=== PATIENT | female | born 1935 | race Caucasian/White ===

== ENCOUNTER 2016-12-02 16:34 | Inpatient (IN) | payer MEDICARE, BC ==
[2016-12-02] MEDS ORDERED: MORPHINE SULFATE 4 MG/ML SYRG IV ONE ×2 (16:51→18:12)
[2016-12-02] MEDS ORDERED: MORPHINE SULFATE 2 MG/ML DISP.SYRIN ONE (16:54)
--- OUTSIDE RECORDS SUMMARY | 2016-12-02 17:25 | XMS REPORT | CCD ---
:1935 Author Name VENANCIO PRASAD Address [address] [facility] Unavailable [place], [place] [id number] Care Team Providers Name Role Phone LUIS CELAYA Attending Physician Unavailable Vital Signs Unknown or Not Available. Allergies Unknown or Not Available. Procedures Unknown or Not Available. History of Immunizations Unknown or Not Available. Problems Unknown or Not Available. Results RENAL FUNCTION PANEL - Collect Date/Time: 04/15/2016 11:24 Test Name Code Test Result Test Units Test Ref Range GLUCOSE 102 mg/dL L=74 H=106 SODIUM 143 mmol/L L=136 H=145 POTASSIUM 3.9 mmol/L L=3.5 H=5.1 CHLORIDE 106 mmol/L L=98 H=107 CO2 26 mmol/L L=21 H=32 BUN 44.0 mg/dL L=7.0 H=18.0 CREATININE 1.8 mg/dL L=0.6 H=1.0 BUN/CREAT 24.4 L=7.6 H=21.2 CALCIUM 9.5 mg/dL L=8.6 H=10.1 PHOSPHORUS 4.3 mg/dL L=2.5 H=4.9 ALBUMIN 4.0 g/dL L=3.4 H=5.0 ANION GAP 14.5 mmol/L L=7.0 H=16.0 AGE 80 YEARS GFR 28.63 ml/min CBC W/DIFF - Collect Date/Time: 04/15/2016 11:24 Test Name Code Test Result Test Units Test Ref Range WBC 6690-2 7.4 K/uL L=3.2 H=10.0 RBC 789-8 3.88 M/uL L=4.00 H=5.20 HEMOGLOBIN 718-7 11.5 g/dL L=12.1 H=15.6 HEMATOCRIT 34.7 % L=35.0 H=47.0 MCV 89.4 fL L=81.0 H=101 MCH 29.6 PG L=26.0 H=38.0 MCHC 33.1 G/DL L=31.0 H=37.0 RDW-SD 43.1 FL L=37.0 H=54.0 RDW-CV 13.8 % L=11.0 H=16.0 PLATELETS 777-3 232 K/UL L=140 H=380 MPV 10.1 FL L=9.0 H=13.0 %GRAN 72.1 % L=0.0 H=75.0 %LYMPH 19.8 % L=0.0 H=50.0 %MONO 6.8 % L=0.0 H=14.0 %EOS 0.4 % L=0.0 H=6.0 %BASO 0.9 % L=0.0 H=1.0 #GRAN 5.33 K/UL L=1.80 H=7.80 #LYMPH 1.46 K/UL L=0.30 H=4.00 #MONO 0.50 K/UL L=0.00 H=0.70 #EOS 0.03 K/UL L=0.00 H=0.40 #BASO 0.07 K/UL L=0.00 H=0.10 SLIDE REVIEWED? NOT INDICATED N/A MANUAL DIFF NOT INDICATED N/A Active Medications Unknown or Not Available. Medications Administered During Visit Unknown or Not Available. Encounters Encounter Diagnosis Diagnosis Code Start Date Anemia in chronic kidney disease D631 04/15/2016 Social History Smoking Status Code Start Date End Date Never smoker [id number] Patient Decision Aids Unknown or Not Available. Discharge Instructions You were admitted to [facility] on 04/15/2016 11:12 with a principal diagnosis of Anemia in chronic kidney disease You had the following tests done:CBC W/DIFFRENAL FUNCTION PANEL You were discharged from [facility] on 04/15/2016 11:12 Should you have any questions prior to discharge, please contact a member of your healthcare team. If you have left the hospital and have any questions, please contact your primary care physician. Chief Complaint and Reason For Visit Unknown or Not Available. Function Status Unknown or Not Available. Plan of Care Diagnostic Test Pending Plan of Care Pending Diagnostic Test IRON & IRON BINDING CAPACITY, SERUM, [LOINC: 56621-9], 04/15/2016 Referral/Transition of Care Unknown or Not Available.
--- OUTSIDE RECORDS SUMMARY | 2016-12-02 17:25 | XMS REPORT | Continuity of Care Document ---
:1935 Author Organization [facility] Address Unavailable [place] [address] Care Team Providers Name Role Phone Doyle Rivera Primary Care Provider [phone] Source Comments This disclosure is being made pursuant to the [employer] program and maynot contain all information available regarding this patient.[facility] Active Allergies and Adverse Reactions Allergen Noted Date Severity Reactions Comments Bactrim Ds 07/21/2016 Low Nausea Only Current Medications Be aware that medications may not be up to date as of this document. Alwaysverify current medications with the patient. Prescription Sig. Disp. Refills Start Date End Date Status pravastatin (PRAVACHOL) 20 Take 20 mg by Active MG tablet mouth daily. lisinopril Take 10 mg by Active (PRINIVIL,ZESTRIL) 10 MG mouth daily. tablet aspirin 325 MG tablet Take 325 mg Active by mouth daily. hydrochlorothiazide take 1 tablet 1 12/04/2015 Active (HYDRODIURIL) 25 MG tablet by mouth daily letrozole (FEMARA) 2.5 MG Take 1 tablet 30 tablet 12 03/24/2016 Active tablet by mouth daily. NIFEDICAL XL 30 MG 24 hr TAKE 1 TABLET 90 tablet 0 08/31/2016 Active tablet BY MOUTH EVERY DAY donepezil (ARICEPT) 10 MG Take 1 tablet 30 tablet 2 09/06/2016 Active tablet by mouth nightly. traMADol (ULTRAM) 50 MG Take 1 tablet 50 tablet 0 11/18/2016 Active tablet (50 mg total) by mouth every 6 (six) hours as needed for Pain. 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) Most Recent Encounters Date Type Specialty Providers Description 11/18/2016 Office Visit Family Medicine Doyle Rivera MD Essential hypertension, benign (Primary Dx); Mixed hyperlipidemia; Chronic pain of both knees; Late onset Alzheimer's disease without behavioral disturbance 11/12/2016 Orders Only Provider, Not In System 09/06/2016 Refill Family Medicine Kandy Phillips CMA 09/01/2016 Orders Only Provider, Not In System Social History Tobacco Use Types Packs/Day Years Used Date Former Smoker Cigarettes 1 25 Alcohol Use Drinks/Week oz/Week Comments No 0 Standard drinks or equivalent 0.0 Last Filed Vital Signs Vital Sign Reading Time Taken Blood Pressure 108/66 11/18/2016 4:01 PM CDT Pulse 70 11/18/2016 4:01 PM CDT Temperature 36.9 C (98.4 F) 08/19/2016 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 Respiratory Rate 20 11/18/2016 4:01 PM CDT Height 1.651 m (5' 5") 11/18/2016 4:01 PM CDT Weight 56.7 kg (125 lb) 11/18/2016 4:01 PM CDT Body Mass Index 20.8 11/18/2016 4:01 PM CDT Oxygen Saturation 98% 11/18/2016 4:01 PM CDT Plan of Care Patient Goal Type Goal Blood Pressure Blood Pressure below 140/90 Date Type Specialty Providers Description 12/06/2016 Appointment [place] [address] [place] [phone] (Fax) 12/17/2016 Appointment Radiology 02/21/2017 Appointment Family Doyle Aguirre MD [address] [place] [phone] (Fax) 02/23/2017 Appointment Oncology 02/23/2017 Appointment Oncology Troy Boateng MD [address] [place] [phone] (Fax) Health Maintenance Due Date Last Done Comments Tetanus/Pertussis (1 - Tdap) 1952 Well Adult Visit 09/05/1983 Zoster Vaccine 60+ 1993 Bone Density 1998 Pneumococcal Low/Medium Risk 65+ (1 of 2 - PCV13) 1998 Influenza Immunization (#1) 2016 Results from Last 3 Months Lipid panel (11/18/2016 4:15 PM) Component Value Range Cholesterol 170Comment:Cholesterol preferred <200 mg/dL. 0-200 mg/dL Clinical correlation is essential. Triglycerides 147 0-200 mg/dL HDL Cholesterol 55(L) >60 mg/dL LDL Calculated 85.6Comment: mg/dL <100Optimal 100-129 Near Optimal/Above Optimal 130-159 Borderline High 160-189 High >hm=405Mihd High Cholesterol/HDL Ratio 3.1 Narrative Testing performed at [facility], [address] [place] [address].Lead Portfolio Manager Isauro Duarte MD CBC auto differential (11/18/2016 4:15 PM) Component Value Range WBC 7.0 3.1-11.0 x10^3/uL RBC 3.52(L) 4.00-5.10 x10^6/uL Hemoglobin 10.9(L) 12.5-15.3 g/dL Hematocrit 32.6(L) 33.7-46.0 % MCV 92.6 82.0-98.0 fL MCH 31.0 27.2-33.3 pg MCHC 33.4 32.0-36.0 g/dL RDW 13.3 11.5-14.7 % SD-RDW 43.7 36.5-50.0 fL Platelets 261 150-450 x10^3/uL MPV 9.7 9.1-12.1 fL NE% 64.0 42.0-76.0 % %LYMPH 24.9 13.5-48.0 % %MONO 8.7 3.5-14.0 % % Eosinophils 0.7 0.0-7.0 % % Basophils 1.4 0.0-1.5 % Imm Gran Relative 0.3 0.0-1.0 % NE# 4.5 1.2-7.3 x10^3/uL Lymphs # 1.8 0.7-3.5 x10^3/uL [place]# 0.6 0.2-0.9 x10^3/uL Eosinophil # 0.1 0.0-0.5 x10^3/uL Baso# 0.1 0.0-0.1 x10^3/uL Imm Gran Absolute 0.02 0.00-0.10 x10^3/uL NRBC % 0.00 0.00-0.10 /100 WBC Specimen BLOOD Narrative Testing performed at [facility], [address] [place] [address].Lead Portfolio Manager Isauro Duarte MD Comprehensive metabolic panel (11/18/2016 4:15 PM) Component Value Range Glucose 97Comment: 60-100 mg/dL Fasting Plasma Glucose (FPG)<100 MG/DL Impaired Fasting Glucose (IFG) 100-125 MG/DL Provisional Diagnosis of Diabetes Mellitus > tv=129 MG/DL (Diagnosis Must Be Confirmed) BUN, Blood 21(H) 10-20 mg/dL Creatinine 1.6(H) 0.6-1.2 mg/dL Glomerular Filtration Rate 29(L) >80 mL/min/1.73mm2 Estimate Glomerlular Filtration Rate 34(L)Comment:The estimated GFR >80 mL/min/1.73mm2 Estimate- has not been validated for women or patients with serious comorbid conditions, or with extremes of body size, muscle mass, or nutritional status. Calcium 9.3 8.4-10.2 mg/dL Sodium 144 136-145 mmol/L Potassium 3.9 3.5-4.6 mmol/L Chloride 109 99-111 mmol/L CO2 26.1 21.0-32.0 mmol/L Albumin 3.3(L) 3.5-5.0 g/dL Total Protein 7.2 6.1-8.0 g/dL Bilirubin Total 0.2 0.2-1.2 mg/dL Alkaline Phosphatase 76 40-150 U/L AST 19 5-34 U/L ALT 7 0-55 u/L Narrative Testing performed at [facility], [address] [place] [address].Lead Portfolio Manager Isauro Duarte MD XR ANKLE MIN 3 VIEWS (11/04/2016)
--- OUTSIDE RECORDS SUMMARY | 2016-12-02 17:25 | XMS REPORT | Continuity of Care Document ---
:1935 Demographics Phone Unavailable Preferred Language Unknown Marital Status Unknown Baptist Affiliation Unknown Race Unknown Ethnic Group Unknown Author Organization [facility] ([facility]) Address [place] [address] Phone [phone] Care Team Providers Name Role Phone Unavailable Primary Care Provider Unavailable Source Comments This disclosure is being made pursuant to the Care Everywhere program, applicable federal and state laws, and may not contain all informaitonavailable regarding this patient.[facility] ([facility]) Active Allergies and Adverse Reactions Not on File Current Medications Not on file Active Problems Not on file Social History Tobacco Use Types Packs/Day Years Used Date Never Assessed Plan of Care Health Maintenance Due Date Last Done Comments Hepatitis B Vaccine (1 of 3 - Primary Series) 1935 Tdap Vaccine 1944 Lipid Disorder Screening 09/05/1951 Td Vaccine 09/05/1951 Colonoscopy 1983 Zoster Vaccine 1993 Osteoporosis Screening (DXA Bone Density) 1998 Pneumococcal Vaccine (1 of 2 - PCV13) 1998 Influenza Vaccine: Seasonal (#1) 01/26/2016 Results from Last 3 Months Not on file
[2016-12-02] MEDS ORDERED: ONDANSETRON HCL/PF 2 MG/ML VIAL IV ONE (18:12)
[2016-12-02] MEDS ORDERED: ONDANSETRON HCL/PF 2 MG/ML VIAL ONE (18:13)
[2016-12-02] MEDS ORDERED: MORPHINE SULFATE 4 MG/ML SYRG ONE (18:13)
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
--- OUTSIDE RECORDS SUMMARY | 2016-12-02 19:17 | XMS REPORT | Continuity of Care Document ---
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 Respiratory Rate 20 11/18/2016 4:01 PM CDT [...] 12/06/2016 Appointment [place] [address] [place] [phone] (Fax) 12/17/2016 Appointment Radiology 02/21/2017 Appointment Family Doyle Aguirre MD [address] [place] [phone] (Fax) 02/23/2017 Appointment Oncology 02/23/2017 Appointment Oncology Troy Boateng MD [address] [place] [phone] (Fax) Health Maintenance Due Date Last Done [...] Optimal/Above Optimal 130-159 Borderline High 160-189 High >[id number] High Cholesterol/HDL Ratio 3.1 Narrative Testing performed at [facility], [address] [place] [address].Animal Tech Isauro Duarte MD CBC auto differential (11/18/2016 [...] 1.2-7.3 x10^3/uL Lymphs # 1.8 0.7-3.5 x10^3/uL [place]# 0.6 0.2-0.9 x10^3/uL Eosinophil # 0.1 0.0-0.5 x10^3/uL Baso# 0.1 0.0-0.1 x10^3/uL Imm Gran Absolute 0.02 0.00-0.10 x10^3/uL NRBC % 0.00 0.00-0.10 /100 WBC Specimen BLOOD Narrative Testing performed at [facility], [address] [place] [address].Animal Tech Isauro Duarte MD Comprehensive metabolic panel (11/18/2016 4:15 PM) Component Value Range Glucose 97Comment: 60-100 mg/dL Fasting Plasma Glucose (FPG)<100 MG/DL Impaired Fasting Glucose (IFG) 100-125 MG/DL Provisional Diagnosis of Diabetes Mellitus > mp=063 MG/DL (Diagnosis Must Be Confirmed) BUN, Blood [...] 7 0-55 u/L Narrative Testing performed at [facility], [address] [place] [address].Animal Tech Isauro Duarte MD XR ANKLE MIN 3 VIEWS (11/04/2016)
--- OUTSIDE RECORDS SUMMARY | 2016-12-02 19:17 | XMS REPORT | Continuity of Care Document ---
:1935 Demographics Phone Unavailable Preferred Language Unknown Marital Status Unknown Yarsani Affiliation Unknown Race Unknown Ethnic Group Unknown Author Organization [facility] ([facility]) [place] [address] Phone [phone] Care Team Providers Name Role Phone Unavailable Primary Care Provider Unavailable Source Comments This disclosure is being made pursuant to the Care Everywhere program, applicable federal and state laws, and may not contain all informaitonavailable regarding this patient.[facility] ([facility]) Active Allergies and Adverse Reactions Not on [...]
[2016-12-02] MEDS ORDERED: HYDROmorphone HCL 1 MG/ML DISP.SYRIN IV ONE (19:58)
[2016-12-02] MEDS ORDERED: HYDROmorphone HCL 1 MG/ML DISP.SYRIN ONE (20:01)
[2016-12-02] MEDS ORDERED: ONDANSETRON HCL/PF 2 MG/ML VIAL IV PRN (21:10)
[2016-12-02] MEDS ORDERED: traMADol HCL 50 MG TABLET PO PRN ×2 (21:23→21:31)
[2016-12-02] MEDS: DEXTROSE 5%-LACTATED RINGERS 1,000 ML IV PRN (21:51)
[2016-12-02 21:55] LABS: Hemoglobin 10.1 gm/dL (12.5-16.0); Mean Cell Volume 87.5 fl (78-100); Mean Corpuscular Hemoglobin 29.4 pg (27-31); Mean Corpuscular Hgb Conc 33.7 g/dl (32-36); Mean Platelet Volume 9.9 fl (6.0-9.5); Neutrophil # 9.3 K/mm3 (1.3-6.0); Platelet Count 202 K/mm3 (150-450); Red Blood Count 3.43 M/mm3 (4.2-5.4); White Blood Count 10.4 K/mm3 (4.0-10.5)
[2016-12-02] MEDS: HYDROmorphone HCL 1 MG/ML DISP.SYRIN IV PRN (21:56)
[2016-12-02 22:01] LABS: BUN/Creatinine Ratio 19.4 (9.0-21.6)
[2016-12-02 22:02] LABS: Albumin * 3.2 gm/dl (3.4-5.0); Anion Gap 14.4 mmol/L (6.8-13.8); Bilirubin, Total 0.6 mg/dL (0.0-1.1); Ca. Corrected For Albumin 9.8 mg/dL (8.4-10.2); Calcium * 9.5 mg/dL (7.9-10.9); Carbon Dioxide 27.2 mmol/L (24-32.6); Potassium 3.6 mmol/L (3.4-4.6); TSH * 2.107 uIU/mL (0.358-3.74); Total Protein 6.9 gm/dL (6.2-8.2)
[2016-12-02 22:21] LABS: Urine Bilirubin 1 mg/dl (NEGATIVE); Urine Blood 50 /ul (NEGATIVE); Urine Ketone 5 mg/dL (NEGATIVE); Urine Nitrite Negative (NEGATIVE); Urine Protein Negative (NEGATIVE); Urine Specific Gravity 1.025 SP.GR. (1.005-1.010); Urine Urobilinogen Normal (NORMAL)
[2016-12-02 23:04] LABS: Urine Appearance Slightly Cloudy; Urine Bacteria 3+; Urine Color Yellow; Urine RBC 0-5 /hpf (0-5); Urine Renal Epithelial Cell Few - 1+ /hpf
[2016-12-02 23:05] LABS: Urine Amorphous Sediment Few - 1+ (NONE-FEW); Urine Mucus Few - 1+; Urine Yeast Few - 1+
--- NOTE | 2016-12-02 23:21 | HP ---
Addendum entered and electronically signed by Joann Hallman ARNP 12/03/16 03: 03: pt is cleared for surgery this am. MATT Corcoran. Original Note: <Joann Hallman - Last Filed: 12/03/16 02:27> Chief Complaint - Chief Complaint Date of Service: 12/02/16 Time of Service: 20:50 Chief Complaint: right hip fracture History of Present Illness: Lilian is an 81 year old female with a PMH of dementia, HTN, HLD who was found at her independent living quarters after a fall. Unable to obtain a full history as patient has dementia and family is not present. Information obtained from ER records. ER eval revealed right displaced femur fracture - Dr. Escalante has been consulted and will likely take the patient to surgery in the am to repair. Patient c/o right hip / leg pain. denies cp, dyspnea and n/ v. EKG shows SR with possible old inferior LA but no acute changes. Patient to be admitted for right femur fracture and likely surgical repair in the am. expect patient stay of at least 3 midnights. - Patient's Past Medical History Patient History - Medical: Chronic Pain, Dementia Patient History - Cardiac/Respiratory: Hypertension, Hyperlipidemia Patient History - Cancer: Breast, Surgical Treatment Patient History - Surgical Procedures: Cataracts, Hysterectomy, Other Patient History - Other: None LMP (females 10-50): Menopausal - Family History Mother Family History - Medical: , No pertinent hx Family History - Cardiac/Respiratory: Myocardial Infarction Family History - Cancer: History Unknown, Other Father Family History - Medical: , No pertinent hx Family History - Cardiac/Respiratory: Atrial Fibrillation Family History - Cancer: History Unknown, Other Brother Family History - Medical: , No pertinent hx Family History - Cardiac/Respiratory: No pertinent hx Family History - Cancer: History Unknown, Other Sister Family History - Medical: , No pertinent hx Family History - Cardiac/Respiratory: No pertinent hx Family History - Cancer: History Unknown, Other - Social History Living Situations: alone Abuse History: No History of abuse Psych History: No pertinent hx Smoking Status: Former smoker Have you smoked in the past 12 months: No Alcohol Use: none Drug Use: none - Immunizations Immunizations Up to Date: Yes Hx Pneumococcal Vaccination: No History of Influenza Vaccine: No Review Of Systems (GEN) - Review of Systems Generalized/Overall Review: Present: No Symptoms Reported EENTM: Present: No Symptoms Reported Respiratory: Present: No Symptoms Reported Cardiac: Present: No Symptoms Reported Abdominal: Present: No Symptoms Reported Genitourinary: Present: No Symptoms Reported Musculoskeletal: Present: Joint Pain Neurological: Present: Other - dementia Skin: Present: No Symptoms Reported Endocrine: Present: No Symptoms Reported Misc: All systems neg except as marked Immunizations: IMMUNIZATION HX Immunizations Up to Date Yes History of Influenza Vaccine No Hx Pneumococcal Vaccination No Allergies/Adverse Reactions: Allergies Allergy/AdvReac Type Severity Reaction Status Date / Time No Known Allergies Allergy Verified 12/02/16 20:46 Home Medications: HOME MEDICATIONS Aspirin [Aspirin Enteric Coated] 325 mg PO DAILY 12/02/16 [Last Taken Unknown] Donepezil HCl [Aricept] 10 mg PO DAILY 12/02/16 [Last Taken Unknown] Hydrochlorothiazide [Hydrodiuril] 25 mg PO DAILY 12/02/16 [Last Taken Unknown] Lisinopril [Prinivil] 10 mg PO DAILY 12/02/16 [Last Taken Unknown] NIFEdipine [Procardia Xl] 30 mg PO DAILY 12/02/16 [Last Taken Unknown] Pravastatin Sodium [Pravachol] 20 mg PO DAILY 12/02/16 [Last Taken Unknown] traMADol HCL [Ultram] 50 mg PO PRN PRN 12/02/16 [Last Taken Unknown] Exam - Exam Vital Signs: Vital Signs - Last Taken Temp 36.0 C L 12/02/16 21:00 Pulse 86 12/02/16 21:00 Resp 16 12/02/16 21:00 BP 109/58 12/02/16 21:00 Pulse Ox 95 12/02/16 21:00 Constitutional: Present: Alert, Cooperative, No distress ENT Exam: Present: hearing grossly normal Eye Exam: bilateral eye: normal inspection Neck: Present: supple Back Exam: Present: no vertebral tenderness Breasts: Present: Exam deferred Respiratory: Present: lungs clear, normal breath sounds, no respiratory distress Cardiovascular/Chest: Present: normal peripheral pulses, regular rate, rhythm, no chest tenderness Peripheral Pulses: dorsalis-pedis (R): 2+, dorsalis-pedis (L): 2+, radial (R): 2 +, radial (L): 2+ Abdomen: Present: soft, nontender, nondistended /Rectal: Present: Exam deferred Extremity: Present: no pedal edema, leg pain - right. Absent: slow capillary refill Skin Exam: Present: normal color, warm/dry, no cyanosis Neurologic: Present: other - dementia Diagnostic Studies: Abnormal Lab Results 12/02/16 12/02/16 12/02/16 Range/Units 21:26 21:26 21:40 RBC 3.43 L (4.2-5.4) M/mm3 Hgb 10.1 L (12.5-16.0) gm/dL Hct 30.0 L (37.0-47.0) % MPV 9.9 H (6.0-9.5) fl Immature Gran % (Auto) 0.50 H (0.001-0.429) % Immature Gran # (Auto) 0.05 H (0.000-0.0310) K/mm3 Neutrophils % 89.0 H (42-75.0) % Lymphocytes % 5.4 L (20-51) % Neutrophils # 9.3 H (1.3-6.0) K/mm3 Lymphocytes # 0.6 L (1.5-3.5) k/mm3 Sodium 144 H (132-142) mmol/L Plasma Sodium 145 H (130-142) mmol/L Anion Gap 14.4 H (6.8-13.8) mmol/L BUN 37 H (3-23) mg/dL Creatinine 1.91 H (0.4-1.4) mg/dL Est GFR (Non-Af Amer) 27 L (60-130) mL/min Random Glucose 136 H (70-110) mg/dL ALT 13 L (19-67) U/L Albumin 3.2 L (3.4-5.0) gm/dl Urine Blood 50 H (NEGATIVE) /ul Urine Bilirubin 1 H (NEGATIVE) mg/dl Ur Leukocyte Esterase 500 H (NEGATIVE) /ul Urine WBC 5-10 H (0-5) /hpf Ur Epithelial Cells 10-25 H (0-5) /hpf Ur Renal Epithelial Cell Few - 1+ H (NONE) /hpf Urine Bacteria 3+ H (NONE) Hyaline Casts 5-10 H (NONE) /LPF Urine Mucus Few - 1+ H (NONE) Urine Yeast Few - 1+ H (NONE) Laboratory Results WBC 10.4 K/mm3 (4.0-10.5) 12/02/16 21:26 RBC 3.43 M/mm3 (4.2-5.4) L 12/02/16 21:26 Hgb 10.1 gm/dL (12.5-16.0) L 12/02/16 21:26 Hct 30.0 % (37.0-47.0) L 12/02/16 21:26 MCV 87.5 fl (78-100) 12/02/16 21:26 MCH 29.4 pg (27-31) 12/02/16 21: MCHC 33.7 g/dl (32-36) 12/02/16 21: RDW 13.0 % (11.5-14.0) 12/02/16 21: Plt Count 202 K/mm3 (150-450) 12/02/16 21:26 MPV 9.9 fl (6.0-9.5) H 12/02/16 21:26 Immature Gran % (Auto) 0.50 % (0.001-0.429) H 12/02/16 21:26 Immature Gran # (Auto) 0.05 K/mm3 (0.000-0.0310) H 12/02/16 21:26 Neutrophils % 89.0 % (42-75.0) H 12/02/16 21:26 Lymphocytes % 5.4 % (20-51) L 12/02/16 21:26 Monocytes % 4.8 % (0.0-9) 12/02/16 21:26 Eosinophils % 0.0 % (0.0-3.0) 12/02/16 21: Basophils % 0.3 % (0.0-1.0) 12/02/16 21:26 Nucleated RBC % 0.0 k/mm3 (0-1) 12/02/16 21:26 Neutrophils # 9.3 K/mm3 (1.3-6.0) H 12/02/16 21:26 Lymphocytes # 0.6 k/mm3 (1.5-3.5) L 12/02/16 21:26 Monocytes # 0.5 k/mm3 (0.0-1.0) 12/02/16 21: Eosinophils # 0.0 k/mm3 (0.0-0.7) 12/02/16 21:26 Absolute Basophils 0.0 k/mm3 (0.0-0.1) 12/02/16 21:26 Sodium 144 mmol/L (132-142) H 12/02/16 21:26 Plasma Sodium 145 mmol/L (130-142) H 12/02/16 21:26 Potassium 3.6 mmol/L (3.4-4.6) 12/02/16 21:26 Chloride 106 mmol/L (97-106) 12/02/16 21:26 Carbon Dioxide 27.2 mmol/L (24-32.6) 12/02/16 21:26 Anion Gap 14.4 mmol/L (6.8-13.8) H 12/02/16 21:26 BUN 37 mg/dL (3-23) H 12/02/16 21:26 Creatinine 1.91 mg/dL (0.4-1.4) H 12/02/16 21:26 Est GFR (Non-Af Amer) 27 mL/min (60-130) L 12/02/16 21:26 BUN/Creatinine Ratio 19.4 (9.0-21.6) 12/02/16 21:26 Random Glucose 136 mg/dL (70-110) H 12/02/16 21:26 Calcium 9.5 mg/dL (7.9-10.9) 12/02/16 21:26 Calcium Adj for Albumin 9.8 mg/dL (8.4-10.2) 12/02/16 21:26 Total Bilirubin 0.6 mg/dL (0.0-1.1) 12/02/16 21:26 AST 26 U/L (0-48) 12/02/16 21:26 ALT 13 U/L (19-67) L 12/02/16 21:26 Alkaline Phosphatase 66 U/L (50-170) 12/02/16 21:26 Total Protein 6.9 gm/dL (6.2-8.2) 12/02/16 21:26 Albumin 3.2 gm/dl (3.4-5.0) L 12/02/16 21:26 TSH 2.107 uIU/mL (0.358-3.74) 12/02/16 21:26 Urine Color Yellow 12/02/16 21:40 Urine Appearance Slightly cloudy 12/02/16 21:40 Urine pH 6.0 pH (5.0-7.0) 12/02/16 21:40 Ur Specific [place] 1.025 SP.GR. (1.005-1.010) 12/02/16 21:40 Urine Protein Negative mg/dL (NEGATIVE) 12/02/16 21:40 Urine Glucose (UA) Negative mg/dL (NEGATIVE) 12/02/16 21:40 Urine Ketones 5 mg/dL (NEGATIVE) 12/02/16 21:40 Urine Blood 50 /ul (NEGATIVE) H 12/02/16 21:40 Urine Nitrate Negative (NEGATIVE) 12/02/16 21:40 Urine Bilirubin 1 mg/dl (NEGATIVE) H 12/02/16 21:40 Urine Ictotest Negative (NEGATIVE) 12/02/16 21:40 Urine Urobilinogen Normal EU/dl (NORMAL) 12/02/16 21:40 Ur Leukocyte Esterase 500 /ul (NEGATIVE) H 12/02/16 21:40 Urine RBC 0-5 /hpf (0-5) 12/02/16 21:40 Urine WBC 5-10 /hpf (0-5) H 12/02/16 21:40 Ur Epithelial Cells 10-25 /hpf (0-5) H 12/02/16 21:40 Ur Renal Epithelial Cell Few - 1+ /hpf (NONE) H 12/02/16 21:40 Calcium Oxalate Crystal Trace /hpf (NONE) 12/02/16 21:40 Amorphous Sediment Few - 1+ (NONE-FEW) 12/02/16 21:40 Urine Bacteria 3+ (NONE) H 12/02/16 21:40 Hyaline Casts 5-10 /LPF (NONE) H 12/02/16 21:40 Urine Mucus Few - 1+ (NONE) H 12/02/16 21:40 Urine Yeast Few - 1+ (NONE) H 12/02/16 21:40 Urine Culture Comments Culture to follow 12/02/16 21:40 Assessment/Plan - Narrative Narrative: Displaced right femur fracture - consult Dr. Escalante, appreciate his help. - NPO p mn, likely surgery in am. - D5 with LR at 125 ml/hr due to NPO. - pain medications prn - encourage good pain management pre and post op. - incentive spirometer q1 hour while awake - hebert due to femur fracture and immobility Fall - check cbc, cmp, ua, tsh due to fall - further orders based on results Dementia - high fall risk - will need bed alarm while in hospital - watch closely post op HTN - vital signs q 4 hours Code status: Full Code VTE: none preop due to surgery in am; post op per orthopaedics GI proph: protonix po - Assessment/Plan (1) Fracture, intertrochanteric, right femur Problem: Acute QualifierTitle: Encounter type: initial encounter Fracture type: closed Fracture alignment: displaced Qualified Code(s): S72.141A - Displaced intertrochanteric fracture of right femur, initial encounter for closed fracture (2) Fall Problem: Acute QualifierTitle: Encounter type: initial encounter Qualified Code(s): W19.XXXA - Unspecified fall, initial encounter (3) Dementia Problem: Chronic QualifierTitle: Dementia type: unspecified type Dementia behavioral disturbance: without behavioral disturbance Qualified Code(s): F03.90 - Unspecified dementia without behavioral disturbance (4) HTN (hypertension) Problem: Chronic QualifierTitle: Hypertension type: essential hypertension Qualified Code( s): I10 - Essential (primary) hypertension (5) HLD (hyperlipidemia) Problem: Acute QualifierTitle: Hyperlipidemia type: unspecified Qualified Code(s): E78.5 - Hyperlipidemia, unspecified <Devang Diaz - Last Filed: 12/03/16 10:12> Immunizations: IMMUNIZATION HX Immunizations Up to Date Yes History of Influenza Vaccine No Hx Pneumococcal Vaccination No Exam - Exam Vital Signs: Vital Signs - Last Taken Temp 36.3 C L 12/03/16 06:37 Pulse 73 12/03/16 06:37 Resp 12 12/03/16 06:37 BP 97/57 12/03/16 06:37 Pulse Ox 93 12/03/16 06:37 Diagnostic Studies: Abnormal Lab Results 12/02/16 12/02/16 12/02/16 Range/Units 21:26 21:26 21:40 RBC 3.43 L (4.2-5.4) M/mm3 Hgb 10.1 L (12.5-16.0) gm/dL Hct 30.0 L (37.0-47.0) % MPV 9.9 H (6.0-9.5) fl Immature Gran % (Auto) 0.50 H (0.001-0.429) % Immature Gran # (Auto) 0.05 H (0.000-0.0310) K/mm3 Neutrophils % 89.0 H (42-75.0) % Lymphocytes % 5.4 L (20-51) % Neutrophils # 9.3 H (1.3-6.0) K/mm3 Lymphocytes # 0.6 L (1.5-3.5) k/mm3 Sodium 144 H (132-142) mmol/L Plasma Sodium 145 H (130-142) mmol/L Anion Gap 14.4 H (6.8-13.8) mmol/L BUN 37 H (3-23) mg/dL Creatinine 1.91 H (0.4-1.4) mg/dL Est GFR (Non-Af Amer) 27 L (60-130) mL/min Random Glucose 136 H (70-110) mg/dL ALT 13 L (19-67) U/L Albumin 3.2 L (3.4-5.0) gm/dl Urine Blood 50 H (NEGATIVE) /ul Urine Bilirubin 1 H (NEGATIVE) mg/dl Ur Leukocyte Esterase 500 H (NEGATIVE) /ul Urine WBC 5-10 H (0-5) /hpf Ur Epithelial Cells 10-25 H (0-5) /hpf Ur Renal Epithelial Cell Few - 1+ H (NONE) /hpf Urine Bacteria 3+ H (NONE) Hyaline Casts 5-10 H (NONE) /LPF Urine Mucus Few - 1+ H (NONE) Urine Yeast Few - 1+ H (NONE) Laboratory Results WBC 10.4 K/mm3 (4.0-10.5) 12/02/16 21:26 RBC 3.43 M/mm3 (4.2-5.4) L 12/02/16 21:26 Hgb 10.1 gm/dL (12.5-16.0) L 12/02/16 21:26 Hct 30.0 % (37.0-47.0) L 12/02/16 21:26 MCV 87.5 fl (78-100) 12/02/16 21:26 MCH 29.4 pg (27-31) 12/02/16 21: MCHC 33.7 g/dl (32-36) 12/02/16 21:26 RDW 13.0 % (11.5-14.0) 12/02/16 21:26 Plt Count 202 K/mm3 (150-450) 12/02/16 21:26 MPV 9.9 fl (6.0-9.5) H 12/02/16 21:26 Immature Gran % (Auto) 0.50 % (0.001-0.429) H 12/02/16 21:26 Immature Gran # (Auto) 0.05 K/mm3 (0.000-0.0310) H 12/02/16 21:26 Neutrophils % 89.0 % (42-75.0) H 12/02/16 21:26 Lymphocytes % 5.4 % (20-51) L 12/02/16 21:26 Monocytes % 4.8 % (0.0-9) 12/02/16 21:26 Eosinophils % 0.0 % (0.0-3.0) 12/02/16 21:26 Basophils % 0.3 % (0.0-1.0) 12/02/16 21:26 Nucleated RBC % 0.0 k/mm3 (0-1) 12/02/16 21:26 Neutrophils # 9.3 K/mm3 (1.3-6.0) H 12/02/16 21:26 Lymphocytes # 0.6 k/mm3 (1.5-3.5) L 12/02/16 21:26 Monocytes # 0.5 k/mm3 (0.0-1.0) 12/02/16 21:26 Eosinophils # 0.0 k/mm3 (0.0-0.7) 12/02/16 21:26 Absolute Basophils 0.0 k/mm3 (0.0-0.1) 12/02/16 21:26 Sodium 144 mmol/L (132-142) H 12/02/16 21:26 Plasma Sodium 145 mmol/L (130-142) H 12/02/16 21:26 Potassium 3.6 mmol/L (3.4-4.6) 12/02/16 21:26 Chloride 106 mmol/L (97-106) 12/02/16 21:26 Carbon Dioxide 27.2 mmol/L (24-32.6) 12/02/16 21:26 Anion Gap 14.4 mmol/L (6.8-13.8) H 12/02/16 21:26 BUN 37 mg/dL (3-23) H 12/02/16 21:26 Creatinine 1.91 mg/dL (0.4-1.4) H 12/02/16 21:26 Est GFR (Non-Af Amer) 27 mL/min (60-130) L 12/02/16 21:26 BUN/Creatinine Ratio 19.4 (9.0-21.6) 12/02/16 21:26 Random Glucose 136 mg/dL (70-110) H 12/02/16 21:26 Calcium 9.5 mg/dL (7.9-10.9) 12/02/16 21:26 Calcium Adj for Albumin 9.8 mg/dL (8.4-10.2) 12/02/16 21:26 Total Bilirubin 0.6 mg/dL (0.0-1.1) 12/02/16 21:26 AST 26 U/L (0-48) 12/02/16 21:26 ALT 13 U/L (19-67) L 12/02/16 21:26 Alkaline Phosphatase 66 U/L (50-170) 12/02/16 21:26 Total Protein 6.9 gm/dL (6.2-8.2) 12/02/16 21:26 Albumin 3.2 gm/dl (3.4-5.0) L 12/02/16 21:26 TSH 2.107 uIU/mL (0.358-3.74) 12/02/16 21:26 Urine Color Yellow 12/02/16 21:40 Urine Appearance Slightly cloudy 12/02/16 21:40 Urine pH 6.0 pH (5.0-7.0) 12/02/16 21:40 Ur Specific [place] 1.025 SP.GR. (1.005-1.010) 12/02/16 21:40 Urine Protein Negative mg/dL (NEGATIVE) 12/02/16 21:40 Urine Glucose (UA) Negative mg/dL (NEGATIVE) 12/02/16 21:40 Urine Ketones 5 mg/dL (NEGATIVE) 12/02/16 21:40 Urine Blood 50 /ul (NEGATIVE) H 12/02/16 21:40 Urine Nitrate Negative (NEGATIVE) 12/02/16 21:40 Urine Bilirubin 1 mg/dl (NEGATIVE) H 12/02/16 21:40 Urine Ictotest Negative (NEGATIVE) 12/02/16 21:40 Urine Urobilinogen Normal EU/dl (NORMAL) 12/02/16 21:40 Ur Leukocyte Esterase 500 /ul (NEGATIVE) H 12/02/16 21:40 Urine RBC 0-5 /hpf (0-5) 12/02/16 21:40 Urine WBC 5-10 /hpf (0-5) H 12/02/16 21:40 Ur Epithelial Cells 10-25 /hpf (0-5) H 12/02/16 21:40 Ur Renal Epithelial Cell Few - 1+ /hpf (NONE) H 12/02/16 21:40 Calcium Oxalate Crystal Trace /hpf (NONE) 12/02/16 21:40 Amorphous Sediment Few - 1+ (NONE-FEW) 12/02/16 21:40 Urine Bacteria 3+ (NONE) H 12/02/16 21:40 Hyaline Casts 5-10 /LPF (NONE) H 12/02/16 21:40 Urine Mucus Few - 1+ (NONE) H 12/02/16 21:40 Urine Yeast Few - 1+ (NONE) H 12/02/16 21:40 Urine Culture Comments Culture to follow 12/02/16 21:40 Assessment/Plan - Narrative Narrative: The patient is mildly hard of hearing and mildly hard of hearing. She states she fell over backwards and thought she broke every bone in her body. There are no contraindications to the planned hip repair. I directly supervised our nurse practitioner hospitalist care for this patient.
--- NOTE | 2016-12-03 02:53 | PN ---
<Joann Hallman - Last Filed: 12/03/16 02:53> Subjective - Date and Time Seen Date: 12/03/16 Time: 02:51 Subjective Narrative: pain improved. no cp/dyspnea. plan is for surgery today to fix right femur fracture. Objective - Review of Systems Generalized/Overall Review: Reports: No Symptoms Reported EENTM: Reports: No Symptoms Reported Respiratory: Reports: No Symptoms Reported Cardiac: Reports: No Symptoms Reported Abdominal: Reports: No Symptoms Reported Genitourinary Symptoms: Reports: No Symptoms Reported Musculoskeletal Complaints: Reports: Joint Pain Neurological: Reports: Pre-existing Deficit - dementia Skin: Reports: No Symptoms Reported Endocrine: Reports: No Symptoms Reported Misc: All systems neg except as marked - Vitals Vitals: Last Vital Signs Temp 36.4 C L 12/02/16 23:23 Pulse 91 12/02/16 23:23 Resp 22 H 12/02/16 23:23 BP 119/47 12/02/16 23:23 Pulse Ox 96 12/02/16 23:23 - Abnormal Lab Findings Abnormal Lab Findings: Abnormal Lab Results 12/02/16 12/02/16 12/02/16 Range/Units 21:26 21:26 21:40 RBC 3.43 L (4.2-5.4) M/mm3 Hgb 10.1 L (12.5-16.0) gm/dL Hct 30.0 L (37.0-47.0) % MPV 9.9 H (6.0-9.5) fl Immature Gran % (Auto) 0.50 H (0.001-0.429) % Immature Gran # (Auto) 0.05 H (0.000-0.0310) K/mm3 Neutrophils % 89.0 H (42-75.0) % Lymphocytes % 5.4 L (20-51) % Neutrophils # 9.3 H (1.3-6.0) K/mm3 Lymphocytes # 0.6 L (1.5-3.5) k/mm3 Sodium 144 H (132-142) mmol/L Plasma Sodium 145 H (130-142) mmol/L Anion Gap 14.4 H (6.8-13.8) mmol/L BUN 37 H (3-23) mg/dL Creatinine 1.91 H (0.4-1.4) mg/dL Est GFR (Non-Af Amer) 27 L (60-130) mL/min Random Glucose 136 H (70-110) mg/dL ALT 13 L (19-67) U/L Albumin 3.2 L (3.4-5.0) gm/dl Urine Blood 50 H (NEGATIVE) /ul Urine Bilirubin 1 H (NEGATIVE) mg/dl Ur Leukocyte Esterase 500 H (NEGATIVE) /ul Urine WBC 5-10 H (0-5) /hpf Ur Epithelial Cells 10-25 H (0-5) /hpf Ur Renal Epithelial Cell Few - 1+ H (NONE) /hpf Urine Bacteria 3+ H (NONE) Hyaline Casts 5-10 H (NONE) /LPF Urine Mucus Few - 1+ H (NONE) Urine Yeast Few - 1+ H (NONE) - Exam Constitutional: Present: Alert, Cooperative, No distress ENT Exam: Present: hearing grossly normal Neck: Present: supple Breasts: Present: Exam deferred Respiratory: Present: lungs clear, normal breath sounds, no respiratory distress Cardiovascular/Chest: Present: normal peripheral pulses, regular rate, rhythm, no chest tenderness Abdomen: Present: soft, nontender, nondistended /Rectal: Present: Exam deferred Extremity: Present: no pedal edema, leg pain - right. Absent: slow capillary refill Skin Exam: Present: normal color, warm/dry, no cyanosis Neurologic: Present: other - dementia Cauti Physician Documentation - Urinary Catheter Management Urethral (Hebert) Urethral Indwelling: Yes Reason for Continuing Indwelling Catheter: Pelvic fractures Date of Insertion: 12/02/16 Time of Insertion: 21:45 Assessment/Plan Plan Narrative: Displaced right femur fracture - Dr. Escalante consulted, appreciate his help. - NPO, likely surgery this am - D5 with LR at 125 ml/hr due to NPO. - pain medications prn - encourage good pain management pre and post op. - incentive spirometer q1 hour while awake - hebert due to femur fracture and immobility UTI - WBC wnl but neutrophils elevated at 89.0 - UA c/w infection - Rocephin 1 gm iv q 24 hours - Day #1 - Diflucan 150 mg po daily - Day #1 - due to yeast in urine on cath UA - urine culture pending - check blood cultures to rule out more serious infection AMANDEEP - unsure of baseline creatinine as I do not have additional labs available - casts and additional UA results c/w kidney injury - IVF at 125 ml/hr - ? additional workup post op anemia - watch h/h post op. Fall - likely due to UA Dementia - high fall risk - will need bed alarm while in hospital - watch closely post op HTN - vital signs q 4 hours Code status: Full Code VTE: none preop due to surgery this am; post op per orthopaedics GI proph: protonix po - Problems/Diagnosis (1) Fracture, intertrochanteric, right femur Problem: Acute QualifierTitle: Encounter type: initial encounter Fracture type: closed Fracture alignment: displaced Qualified Code(s): S72.141A - Displaced intertrochanteric fracture of right femur, initial encounter for closed fracture (2) Fall Problem: Acute QualifierTitle: Encounter type: initial encounter Qualified Code(s): W19.XXXA - Unspecified fall, initial encounter (3) Dementia Problem: Chronic QualifierTitle: Dementia type: unspecified type Dementia behavioral disturbance: without behavioral disturbance Qualified Code(s): F03.90 - Unspecified dementia without behavioral disturbance (4) HTN (hypertension) Problem: Chronic QualifierTitle: Hypertension type: essential hypertension Qualified Code( s): I10 - Essential (primary) hypertension (5) HLD (hyperlipidemia) Problem: Acute QualifierTitle: Hyperlipidemia type: unspecified Qualified Code(s): E78.5 - Hyperlipidemia, unspecified (6) Anemia Problem: Acute QualifierTitle: Anemia type: unspecified type Qualified Code(s): D64.9 - Anemia, unspecified <Devang Diaz - Last Filed: 12/03/16 10:09> Subjective Subjective Narrative: She is mildly pleasantly demented. She has minimimal pain. She had to be reminded that she has a hip fracture. There are no contraindications to hip repair. I directly supervised our nurse practitioner hospitalist care for this patient. Objective - Vitals Vitals: Last Vital Signs Temp 36.3 C L 12/03/16 06:37 Pulse 73 12/03/16 06:37 Resp 12 12/03/16 06:37 BP 97/57 12/03/16 06:37 Pulse Ox 93 12/03/16 06:37 - Abnormal Lab Findings Abnormal Lab Findings: Abnormal Lab Results 12/02/16 12/02/1617 Range/Units 21:26 21:26 21:40 RBC 3.43 L (4.2-5.4) M/mm3 Hgb 10.1 L (12.5-16.0) gm/dL Hct 30.0 L (37.0-47.0) % MPV 9.9 H (6.0-9.5) fl Immature Gran % (Auto) 0.50 H (0.001-0.429) % Immature Gran # (Auto) 0.05 H (0.000-0.0310) K/mm3 Neutrophils % 89.0 H (42-75.0) % Lymphocytes % 5.4 L (20-51) % Neutrophils # 9.3 H (1.3-6.0) K/mm3 Lymphocytes # 0.6 L (1.5-3.5) k/mm3 Sodium 144 H (132-142) mmol/L Plasma Sodium 145 H (130-142) mmol/L Anion Gap 14.4 H (6.8-13.8) mmol/L BUN 37 H (3-23) mg/dL Creatinine 1.91 H (0.4-1.4) mg/dL Est GFR (Non-Af Amer) 27 L (60-130) mL/min Random Glucose 136 H (70-110) mg/dL ALT 13 L (19-67) U/L Albumin 3.2 L (3.4-5.0) gm/dl Urine Blood 50 H (NEGATIVE) /ul Urine Bilirubin 1 H (NEGATIVE) mg/dl Ur Leukocyte Esterase 500 H (NEGATIVE) /ul Urine WBC 5-10 H (0-5) /hpf Ur Epithelial Cells 10-25 H (0-5) /hpf Ur Renal Epithelial Cell Few - 1+ H (NONE) /hpf Urine Bacteria 3+ H (NONE) Hyaline Casts 5-10 H (NONE) /LPF Urine Mucus Few - 1+ H (NONE) Urine Yeast Few - 1+ H (NONE)
[2016-12-03] MEDS ORDERED: ALBUTEROL SULFATE/IPRATROPIUM 3 ML NEBU IH PRN (04:20)
[2016-12-03] MEDS: HYDROmorphone HCL 1 MG/ML DISP.SYRIN IV PRN ×5 (04:27→22:10)
[2016-12-03] MEDS: DEXTROSE 5%-LACTATED RINGERS 1,000 ML IV PRN ×4 (04:30→18:26)
[2016-12-03] MEDS ORDERED: ceFAZolin SODIUM 1 GM VIAL IV PRN (06:00)
[2016-12-03] MEDS: PANTOPRAZOLE SODIUM 40 MG TABLET.EC PO SCH (07:11)
--- NOTE | 2016-12-03 08:28 | CONS ---
[facility] - General Date of Service: 12/03/16 Narrative: Lilian is an 81 yo F who lives independently and fell yesterday at home resulting in a right intertrochanteric hip fracture. She was initially evaluated in the ED where workup revealed the above injury. She was admitted to the Medicine service and Orthopedics was consulted. She complains only of R hip pain this am. She denies hitting her head or any LOC. She has a history of HTN, HLD, and some mild dementia. She denies any history of bleeding or clotting disorders and she is not on any anticoagulation. - History of Present Illness Allergies/Adverse Reactions: Allergies No Known Allergies Allergy (Verified 12/02/16 20:46) Home Medications: Home Medications Medication Instructions Recorded Last Taken Aspirin [Aspirin Enteric Coated] 325 mg PO DAILY 12/02/16 Unknown Donepezil HCl [Aricept] 10 mg PO DAILY 12/02/16 Unknown Hydrochlorothiazide [Hydrodiuril] 25 mg PO DAILY 12/02/16 Unknown Lisinopril [Prinivil] 10 mg PO DAILY 12/02/16 Unknown NIFEdipine [Procardia Xl] 30 mg PO DAILY 12/02/16 Unknown Pravastatin Sodium [Pravachol] 20 mg PO DAILY 12/02/16 Unknown traMADol HCL [Ultram] 50 mg PO PRN PRN 12/02/16 Unknown - Patient's Past Medical History Patient History - Medical: Chronic Pain, Dementia Patient History - Cardiac/Respiratory: Hypertension, Hyperlipidemia Patient History - Cancer: Breast, Surgical Treatment Patient History - Surgical Procedures: Cataracts, Hysterectomy, Other Patient History - Other: None LMP (females 10-50): Menopausal - Family History Family History:: no untoward family reactions to anesthesia, no family history of clotting disorders - Family History Mother Family History - Medical: , No pertinent hx Family History - Cardiac/Respiratory: Myocardial Infarction Family History - Cancer: History Unknown, Other Father Family History - Medical: , No pertinent hx Family History - Cardiac/Respiratory: Atrial Fibrillation Family History - Cancer: History Unknown, Other Brother Family History - Medical: , No pertinent hx Family History - Cardiac/Respiratory: No pertinent hx Family History - Cancer: History Unknown, Other Sister Family History - Medical: , No pertinent hx Family History - Cardiac/Respiratory: No pertinent hx Family History - Cancer: History Unknown, Other - Social History Living Situations: alone Abuse History: No History of abuse Psych History: No pertinent hx Smoking Status: Former smoker Have you smoked in the past 12 months: No Alcohol Use: none Drug Use: none - Immunizations Immunizations Up to Date: Yes Hx Pneumococcal Vaccination: No History of Influenza Vaccine: No Procedures AFTER-CATAR DISCISSION (08/11/09) Medications - Medications Current Medications: Current Medications Hydromorphone HCl (Dilaudid) 0.5 mg IV Q1H PRN PRN Reason: Moderate Pain Stop: 01/01/17 21:11 Last Admin: 12/03/16 04:27 Dose: 0.5 mg Hydromorphone HCl (Dilaudid) 1 mg IV Q1H PRN PRN Reason: Moderate Pain Stop: 01/01/17 21:12 Last Admin: 12/02/16 21:56 Dose: 1 mg Dextrose/Lactated Ringer's (Dextrose 5%-Lr) 1,000 mls @ 125 mls/hr IV .Q8H PRN PRN Reason: HYDRATION Stop: 01/01/17 21:11 Last Admin: 12/03/16 04:30 Dose: 125 mls/hr Ceftriaxone Sodium 1,000 mg/ (Dextrose/Water) 100 mls @ 200 mls/hr IV Q24H SATISH PRN Reason: Protocol Stop: 01/02/17 00:01 Last Infusion: 12/03/16 01:21 Dose: Infused Pantoprazole Sodium (Protonix) 40 mg PO DAILY@0700 SATIHS Stop: 01/02/17 07:01 Last Admin: 12/03/16 07:11 Dose: Not Given Physical Examination - Exam Narrative: Gen: A&Ox3, NAD Resp: breathing non-labored on RA MSK: RLE--> hip held flexed and internally rotated, pain with any manipulation, SILT, 5/5 EHL/FHL/DF/PF, palpable DP and PT pulses Imaging from ED reviewed, which demonstrates a displaced R intertrochanteric hip fracture involving the lesser trochanter. Vital Signs: Vital Signs - Last Taken Temp 36.3 C L 12/03/16 06:37 Pulse 73 12/03/16 06:37 Resp 12 12/03/16 06:37 BP 97/57 12/03/16 06:37 Pulse Ox 93 12/03/16 06:37 O2 Oxygen Delivery Method Room Air Respiratory: Present: normal breath sounds Cardiovascular/Chest: Present: regular rate, rhythm, no JVD, no murmur - Results and Findings: Narrative: Lilian is an 81 yo F w/ a displaced R intertrochanteric hip fracture. - We discussed treatment options today including operative and non-operative treatment and I recommended surgical fixation with a cephalomedullary device. I discussed the risks and benefits of surgery in detail with the patient today including, but not limited to, infection, bleeding, neurovascular injury, malunion/nonunion, failure of implants, arthrosis, persistent pain and stiffness , DVT/PE, and . After discussion, she wishes to proceed with surgery. Informed consent was obtained on the floor. - Medicine co-management - Cr elevated this am - continue hydration - bedrestemilee NPO - plan to return to the floor post-op where she will be WBAT, progressive upright mobility - 1 g Ancef pre-op - dispo: continue inpatient care Lab/Microbiology results last 24 hrs: Abnormal/Pending Laboratory Last 24 HRS 12/02/16 12/02/16 12/02/16 21:40 21:26 21:26 RBC 3.43 L Hgb 10.1 L Hct 30.0 L MPV 9.9 H Immature Gran % (Auto) 0.50 H Immature Gran # (Auto) 0.05 H Neutrophils % 89.0 H Lymphocytes % 5.4 L Neutrophils # 9.3 H Lymphocytes # 0.6 L Sodium 144 H Plasma Sodium 145 H Anion Gap 14.4 H BUN 37 H Creatinine 1.91 H Est GFR (Non-Af Amer) 27 L Random Glucose 136 H ALT 13 L Albumin 3.2 L Urine Blood 50 H Urine Bilirubin 1 H Ur Leukocyte Esterase 500 H Urine WBC 5-10 H Ur Epithelial Cells 10-25 H Ur Renal Epithelial Cell Few - 1+ H Urine Bacteria 3+ H Hyaline Casts 5-10 H Urine Mucus Few - 1+ H Urine Yeast Few - 1+ H - Assessments/Findings (1) Hip fracture, intertrochanteric Problem: Acute Qualifiers: Encounter type: initial encounter Fracture type: closed Fracture alignment: displaced Laterality: right Qualified Code(s): S72.141A - Displaced intertrochanteric fracture of right femur, initial encounter for closed fracture (2) Fracture, intertrochanteric, right femur Problem: Acute Qualifiers: Encounter type: initial encounter Fracture type: closed Fracture alignment: displaced Qualified Code(s): S72.141A - Displaced intertrochanteric fracture of right femur, initial encounter for closed fracture
[2016-12-03] MEDS ORDERED: SIMVASTATIN 10 MG TABLET PO SCH (09:00)
[2016-12-03] MEDS: DONEPEZIL HCL 10 MG TABLET PO SCH (10:17)
[2016-12-03] MEDS ORDERED: ceFAZolin SODIUM 1 GM in DEXTROSE 5 % IN WATER 100 ML IV ONE ×2 (14:00)
[2016-12-03] MEDS ORDERED: LACTATED RINGERS IV ONE (14:05)
[2016-12-03] MEDS ORDERED: DEXTROSE 5% IV ONE (14:05)
[2016-12-03] MEDS ORDERED: RINGERS SOLUTION,LACTATED 1,000 ML IV ONE (15:25)
[2016-12-03] MEDS ORDERED: MAG HYDROX/ALUMINUM HYD/SIMETH 30 ML UDC PO PRN (16:18)
[2016-12-03] MEDS ORDERED: diphenhydrAMINE HCL 50 MG/ML VIAL IV PRN (16:18)
[2016-12-03] MEDS ORDERED: oxyCODONE HCL/ACETAMINOPHEN 1 TAB TABLET PO PRN ×2 (16:18)
[2016-12-03] MEDS ORDERED: MORPHINE SULFATE 2 MG/ML DISP.SYRIN IV PRN (16:18)
[2016-12-03] MEDS ORDERED: PROMETHAZINE HCL 5 MG in DEXTROSE 5 % IN WATER 50 ML IV PRN ×2 (16:18)
[2016-12-03] MEDS ORDERED: ACETAMINOPHEN 500 MG TABLET PO PRN (16:18)
[2016-12-03] MEDS ORDERED: MAGNESIUM HYDROXIDE 30 ML UDC PO PRN (16:18)
--- NOTE | 2016-12-03 16:31 | OR ---
Operative Report - Dictated Report Narrative: Date: 12/03/2016 Surgeon: Curtis Escalante M.D. [employer]avor Attendant: Shai Wagner PA-C Preoperative diagnosis: Right Intertrochanteric femur fracture Postoperative diagnosis: Right Intertrochanteric femur fracture Operations and procedures: 1. Closed reduction, cephalo-medullary fixation right intertrochanteric femur fracture 2. Intraoperative interpretation of radiographs Anesthesia: Gen. Specimens: None Estimated blood loss: 250 Milliliters Retained implants: [employer] Trigen InterTAN 130 degree size 11.5 mm by 150 centimeter nail with 95 millimeter lag screw and 90 millimeter compression screw, with distal locking screw Complications: None Indications for procedure: Lilian is an 81-year-old female who lives independently and injured the right leg after a trip and fall from standing height. They were admitted to the hospital after being evaluated in the emergency department. Once the medical provider felt that they were stable for surgical treatment, the risks and benefits alternatives were discussed. The risks of , blood clots, bleeding , infection, nerve/tendon/blood vessel injury, malunion, nonunion, failure of implants, painful implants, arthrosis, and need for additional procedures were discussed. The extremity was marked and consent was obtained on the floor. Procedure: After marking the operative extremity on the floor, the patient was taken to the operating room. A timeout was performed. IV antibiotics consisting of 1 g of Ancef was administered. A general anesthetic was induced by anesthesia, and the patient was then placed onto a fracture table with a well-padded perineal post. The nonoperative leg was placed in lithotomy position in a well-padded well leg parra with an SCD on the leg. The operative leg was placed in a well- padded traction boot. Longitudinal traction and internal rotation were utilized in order to reduce the fracture. Preliminary images were attained utilizing C-arm in both the AP and lateral views. This confirmed that we had obtained adequate visualization of the fracture as well as reduction. Next the hip was then prepped and draped in a standard sterile fashion. Next the guidewire was placed percutaneously proximal to the greater trochanter to mey a starting point at the tip of the greater trochanter centered on the lateral view. This was passed down to the level below the lesser trochanter. A scalpel was utilized in order to dissect down to the greater trochanter in order to lace the soft tissue protector down to bone. The entry drill was then placed down the proximal femur to the level of the lesser trochanter. The above nail was then selected and impacted into place. The outrigger was utilized in order to confirm the appropriate depth of the nail. Using the alignment device on the outrigger, a jayashree incision was made over the lateral femur. Sharp dissection was carried through the iliotibial band down to the proximal femur. The guidewire was was placed into the femoral head and a center center position on AP and lateral views. The tip apex distance less than 25 mm combined was obtained. Once we felt that we had placed a guidewire in the appropriate position, it was measured. Next the compression screw site was drilled to the lateral femoral cortex. This was then drilled down to the appropriate depth again confirming that we are within the confines the bone. The derotational bar was then placed and the lag screw was drilled. The lag screw was then secured in place seating fully ensuring that we were within the confines of the bone. The compression screw was then inserted and the fracture site was compressed while releasing the traction on the leg. Using C-arm this was visualized and compressed 5mm across the fracture site. Once it was felt we had adequately stabilized intertrochanteric fracture, the distal interlocking screw was placed in a static position confirmed to be the appropriate length and within the nail on both AP and lateral views. The nail was secured allowing for controlled compression and the outrigger was removed. The wounds were then thoroughly irrigated. Final images were obtained. The hip was placed through range of motion and showed no crepitance. The deep fascia was closed with 0 Vicryl, the subcutaneous tissue with 3-0 Vicryl, and the skin was closed with duane. Sterile dressings of Xeroform, 4 x 4, ABD, and tape were applied. All sponge, sharp, and instrument counts were correct prior to closing the wounds. The patient was then awoken and transferred to the postanesthesia care unit in stable condition.
[2016-12-03] MEDS: ceFAZolin SODIUM 1 GM in DEXTROSE 5 % IN WATER 100 ML IV SCH ×2 (20:09)
[2016-12-03] MEDS: SIMVASTATIN 10 MG TABLET PO SCH (20:10)
[2016-12-03] MEDS: SENNOSIDES/DOCUSATE SODIUM 1 TAB TABLET PO SCH (20:10)
[2016-12-04] MEDS: ceFAZolin SODIUM 1 GM in DEXTROSE 5 % IN WATER 100 ML IV SCH ×4 (03:09→08:53)
[2016-12-04] MEDS: DEXTROSE 5%-LACTATED RINGERS 1,000 ML IV PRN ×2 (03:09→15:01)
[2016-12-04 05:45] LABS: Mean Cell Volume 89.9 fl (78-100); Mean Corpuscular Hemoglobin 29.6 pg (27-31); Mean Corpuscular Hgb Conc 32.9 g/dl (32-36); Mean Platelet Volume 9.1 fl (6.0-9.5); Neutrophil # 8.9 K/mm3 (1.3-6.0); Neutrophil % 87.5 % (42-75.0); Platelet Count 135 K/mm3 (150-450); Red Blood Count 2.47 M/mm3 (4.2-5.4); Red Cell Distribution Width 13.5 % (11.5-14.0); White Blood Count 10.1 K/mm3 (4.0-10.5)
[2016-12-04 05:48] LABS: Hematocrit 22.2 % (37.0-47.0); Hemoglobin 7.3 gm/dL (12.5-16.0)
[2016-12-04 05:52] LABS: Anion Gap 12.9 mmol/L (6.8-13.8); Calcium * 8.1 mg/dL (7.9-10.9); Carbon Dioxide 28.4 mmol/L (24-32.6); Estimated Creat Clear 24.2; Potassium 3.3 mmol/L (3.4-4.6)
--- NOTE | 2016-12-04 06:02 | PN ---
<Joann Hallman - Last Filed: 12/04/16 06:02> Subjective - Date and Time Seen Date: 12/04/16 Time: 05:59 Subjective Narrative: pleasantly confused - did not remember that she had surgery. no cp/dyspnea. no n/v. Objective - Review of Systems Generalized/Overall Review: Reports: No Symptoms Reported EENTM: Reports: No Symptoms Reported Respiratory: Reports: No Symptoms Reported Cardiac: Reports: No Symptoms Reported Abdominal: Reports: No Symptoms Reported Genitourinary Symptoms: Reports: No Symptoms Reported Musculoskeletal Complaints: Reports: Joint Pain, Back Pain, Muscle Pain Neurological: Reports: No Symptoms Reported, Other - pre-existing dementia Skin: Reports: No Symptoms Reported Endocrine: Reports: No Symptoms Reported Misc: All systems neg except as marked - Vitals Vitals: Last Vital Signs Temp 36.9 C 12/04/16 05:15 Pulse 90 12/04/16 05:15 Resp 16 12/04/16 05:15 BP 144/70 12/04/16 05:15 Pulse Ox 100 12/04/16 05:15 - Abnormal Lab Findings Abnormal Lab Findings: Abnormal Lab Results 12/04/16 Range/Units 05:35 RBC 2.47 L (4.2-5.4) M/mm3 Hgb 7.3 L* D (12.5-16.0) gm/dL Hct 22.2 L* D (37.0-47.0) % Plt Count 135 L (150-450) K/mm3 Neutrophils % 87.5 H (42-75.0) % Lymphocytes % 4.9 L (20-51) % Neutrophils # 8.9 H (1.3-6.0) K/mm3 Lymphocytes # 0.5 L (1.5-3.5) k/mm3 - Exam Constitutional: Present: Alert, Cooperative, No distress ENT Exam: Present: hearing grossly normal Neck: Present: supple Breasts: Present: Exam deferred Respiratory: Present: lungs clear, normal breath sounds, no respiratory distress Cardiovascular/Chest: Present: normal peripheral pulses, regular rate, rhythm Abdomen: Present: soft, nontender, nondistended /Rectal: Present: Exam deferred Extremity: Present: leg pain - right. Absent: slow capillary refill Skin Exam: Present: warm/dry, no cyanosis, pallor Cauti Physician Documentation - Urinary Catheter Management Urethral (Hebert) Urethral Indwelling: Yes Reason for Continuing Indwelling Catheter: Pelvic fractures Date of Insertion: 12/02/16 Time of Insertion: 21:45 Assessment/Plan Plan Narrative: Displaced right femur fracture, s/p closed reduction - Dr. Escalante consulted, appreciate his help. - POD #1 - encourage good pain management post op. - incentive spirometer q1 hour while awake - hebert due to femur fracture and immobility - PT/OT - encourage ambulation UTI - WBC wnl but neutrophils elevated at 89.0 - UA c/w infection - Rocephin 1 gm iv q 24 hours - Day #2 - Diflucan 150 mg po daily - Day #2 - due to yeast in urine on cath UA - urine culture pending - check blood cultures to rule out more serious infection AMANDEEP - unsure of baseline creatinine as I do not have additional labs available - casts and additional UA results c/w kidney injury - watch labs while admitted anemia - hgb 7.3/22.2 this am 12/04/16 - asymptomatic - vital sign wnl - monitor for now. Fall - likely due to UA - PT/OT Dementia - high fall risk - will need bed alarm while in hospital - watch closely HTN - vital signs q 4 hours Code status: Full Code VTE: lovenox / SCDs while in bed. GI proph: protonix po - Problems/Diagnosis (1) Fracture, intertrochanteric, right femur Problem: Acute QualifierTitle: Encounter type: initial encounter Fracture type: closed Fracture alignment: displaced Qualified Code(s): S72.141A - Displaced intertrochanteric fracture of right femur, initial encounter for closed fracture (2) Fall Problem: Acute QualifierTitle: Encounter type: initial encounter Qualified Code(s): W19.XXXA - Unspecified fall, initial encounter (3) Dementia Problem: Chronic QualifierTitle: Dementia type: unspecified type Dementia behavioral disturbance: without behavioral disturbance Qualified Code(s): F03.90 - Unspecified dementia without behavioral disturbance (4) HTN (hypertension) Problem: Chronic QualifierTitle: Hypertension type: essential hypertension Qualified Code( s): I10 - Essential (primary) hypertension (5) HLD (hyperlipidemia) Problem: Acute QualifierTitle: Hyperlipidemia type: unspecified Qualified Code(s): E78.5 - Hyperlipidemia, unspecified (6) Anemia Problem: Acute QualifierTitle: Anemia type: unspecified type Qualified Code(s): D64.9 - Anemia, unspecified <Devang Diaz - Last Filed: 12/04/16 12:15> Subjective Subjective Narrative: 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 I directly supervised our nurse practitioner hospitalist care for this patient. Objective - Vitals Vitals: Last Vital Signs Temp 36.6 C 12/04/16 10:00 Pulse 76 12/04/16 10:00 Resp 16 12/04/16 10:00 BP 135/60 12/04/16 10:00 Pulse Ox 100 12/04/16 10:00 - Abnormal Lab Findings Abnormal Lab Findings: Abnormal Lab Results 12/04/16 12/04/16 Range/Units 05:35 05:35 RBC 2.47 L (4.2-5.4) M/mm3 Hgb 7.3 L* D (12.5-16.0) gm/dL Hct 22.2 L* D (37.0-47.0) % Plt Count 135 L (150-450) K/mm3 Neutrophils % 87.5 H (42-75.0) % Lymphocytes % 4.9 L (20-51) % Neutrophils # 8.9 H (1.3-6.0) K/mm3 Lymphocytes # 0.5 L (1.5-3.5) k/mm3 Sodium 143 H (132-142) mmol/L Plasma Sodium 144 H (130-142) mmol/L Potassium 3.3 L (3.4-4.6) mmol/L BUN 29 H (3-23) mg/dL Creatinine 1.71 H (0.4-1.4) mg/dL Est GFR (Non-Af Amer) 30 L (60-130) mL/min Random Glucose 143 H (70-110) mg/dL
[2016-12-04] MEDS ORDERED: POTASSIUM CHLORIDE 40 MEQ/15 ML BTL PO ONE (06:10)
[2016-12-04] MEDS: PANTOPRAZOLE SODIUM 40 MG TABLET.EC PO SCH (06:48)
--- NOTE | 2016-12-04 08:08 | PN ---
Subjective - Date and Time Seen Date: 12/04/16 Subjective Narrative: No events overnight. Pain controlled this am. No other complaints. Objective - Vitals Vitals: Last Vital Signs Temp 36.6 C 12/04/16 06:48 Pulse 92 12/04/16 06:48 Resp 18 12/04/16 06:48 BP 142/75 12/04/16 06:48 Pulse Ox 100 12/04/16 06:48 - Abnormal Lab Findings Abnormal Lab Findings: Abnormal Lab Results 12/04/16 12/04/16 Range/Units 05:35 05:35 RBC 2.47 L (4.2-5.4) M/mm3 Hgb 7.3 L* D (12.5-16.0) gm/dL Hct 22.2 L* D (37.0-47.0) % Plt Count 135 L (150-450) K/mm3 Neutrophils % 87.5 H (42-75.0) % Lymphocytes % 4.9 L (20-51) % Neutrophils # 8.9 H (1.3-6.0) K/mm3 Lymphocytes # 0.5 L (1.5-3.5) k/mm3 Sodium 143 H (132-142) mmol/L Plasma Sodium 144 H (130-142) mmol/L Potassium 3.3 L (3.4-4.6) mmol/L BUN 29 H (3-23) mg/dL Creatinine 1.71 H (0.4-1.4) mg/dL Est GFR (Non-Af Amer) 30 L (60-130) mL/min Random Glucose 143 H (70-110) mg/dL - Exam Exam Narrative: Gen: A&O x3, NAD Resp: breathing non-labored MSK: RLE--> dressings c/d/i, thigh moderately swollen, no erythema, mild pain with gentle motion, SILT, 5/5 EHL/FHL/DF/PF, cap refill brisk Cauti Physician Documentation - Urinary Catheter Management Urethral (Hebert) Urethral Indwelling: Yes Date of Insertion: 12/02/16 Time of Insertion: 21:45 Assessment/Plan Plan Narrative: 81 yo F w/ R intertrochanteric femur fracture s/p cephalomedullary nailing, POD #1. - WBAT, ROM as tolerated - reg diet - oral pain meds - acute blood loss anemia - Hgb 7.3 this am, asymptomatic, vitals stable, continue to monitor - hebert out once mobilizing - DVT ppx: lovenox, SCDs, teds - PT/OT - continue care per Medicine team - dispo: continue inpatient care - Problems/Diagnosis (1) Hip fracture, intertrochanteric Problem: Acute Qualifiers: Encounter type: initial encounter Fracture type: closed Fracture alignment: displaced Laterality: right Qualified Code(s): S72.141A - Displaced intertrochanteric fracture of right femur, initial encounter for closed fracture (2) Fracture, intertrochanteric, right femur Problem: Acute Qualifiers: Encounter type: initial encounter Fracture type: closed Fracture alignment: displaced Qualified Code(s): S72.141A - Displaced intertrochanteric fracture of right femur, initial encounter for closed fracture
[2016-12-04] MEDS: HYDROCHLOROTHIAZIDE 25 MG TABLET PO SCH (08:53)
[2016-12-04] MEDS: DONEPEZIL HCL 10 MG TABLET PO SCH (08:53)
[2016-12-04] MEDS ORDERED: ASPIRIN 325 MG TABLET.DR PO SCH (09:00)
[2016-12-04] MEDS: HYDROmorphone HCL 1 MG/ML DISP.SYRIN IV PRN ×3 (09:00→16:59)
[2016-12-04] MEDS ORDERED: risperiDONE 0.25 MG TABLET PO STA (11:30)
[2016-12-04] MEDS: ENOXAPARIN SODIUM 30 MG/0.3 ML SYRG SC SCH (15:01)
[2016-12-04] MEDS: oxyCODONE HCL/ACETAMINOPHEN 1 TAB TABLET PO PRN (20:02)
[2016-12-04] MEDS: SENNOSIDES/DOCUSATE SODIUM 1 TAB TABLET PO SCH (20:02)
[2016-12-04] MEDS: risperiDONE 0.25 MG TABLET PO SCH (20:02)
[2016-12-04] MEDS: SIMVASTATIN 10 MG TABLET PO SCH (20:03)
[2016-12-05] MEDS: DEXTROSE 5%-LACTATED RINGERS 1,000 ML IV PRN (01:06)
[2016-12-05 05:20] LABS: Mean Cell Volume 90.4 fl (78-100); Mean Corpuscular Hemoglobin 29.7 pg (27-31); Mean Corpuscular Hgb Conc 32.8 g/dl (32-36); Mean Platelet Volume 9.5 fl (6.0-9.5); Neutrophil # 8.2 K/mm3 (1.3-6.0); Platelet Count 124 K/mm3 (150-450); Red Blood Count 2.19 M/mm3 (4.2-5.4); Red Cell Distribution Width 13.6 % (11.5-14.0); White Blood Count 9.6 K/mm3 (4.0-10.5)
[2016-12-05 05:39] LABS: Hematocrit 19.8 % (37.0-47.0); Hemoglobin 6.5 gm/dL (12.5-16.0)
[2016-12-05] MEDS ORDERED: diphenhydrAMINE HCL 50 MG/ML VIAL IV ONE ×2 (05:39→09:15)
[2016-12-05] MEDS ORDERED: ACETAMINOPHEN 325 MG TABLET PO ONE ×2 (05:39→09:15)
[2016-12-05] MEDS ORDERED: FUROSEMIDE 10 MG/ML VIAL IV ONE (05:39)
[2016-12-05 05:43] LABS: Anion Gap 9.7 mmol/L (6.8-13.8); Calcium * 8.3 mg/dL (7.9-10.9); Carbon Dioxide 29.1 mmol/L (24-32.6); Estimated Creat Clear 28.2; Potassium 3.8 mmol/L (3.4-4.6)
--- NOTE | 2016-12-05 06:05 | PN ---
Addendum entered and electronically signed by Joann Hallman ARNP 12/05/16 06: 12: addendum added: final urine culture did not grow anything, will stop rocephin iv. sg Original Note: <Joann Hallman - Last Filed: 12/05/16 06:06> Subjective - Date and Time Seen Date: 12/05/16 Time: 06:01 Subjective Narrative: pleasantly confused. pain controlled. hgb dropped to 6.5 this am. Objective - Review of Systems Generalized/Overall Review: Reports: Fatigue EENTM: Reports: No Symptoms Reported Respiratory: Reports: No Symptoms Reported Cardiac: Reports: No Symptoms Reported Abdominal: Reports: No Symptoms Reported Genitourinary Symptoms: Reports: No Symptoms Reported Musculoskeletal Complaints: Reports: Joint Pain Neurological: Reports: Pre-existing Deficit - dementia Skin: Reports: No Symptoms Reported Endocrine: Reports: No Symptoms Reported Misc: All systems neg except as marked - Vitals Vitals: Last Vital Signs Temp 36.6 C 12/05/16 02:43 Pulse 88 12/05/16 02:43 Resp 18 12/05/16 02:43 BP 143/71 12/05/16 02:43 Pulse Ox 100 12/05/16 02:43 - Abnormal Lab Findings Abnormal Lab Findings: Abnormal Lab Results 12/04/16 12/05/16 12/05/16 Range/Units 05:35 05:10 05:10 RBC 2.19 L (4.2-5.4) M/mm3 Hgb 6.5 L* (12.5-16.0) gm/dL Hct 19.8 L* (37.0-47.0) % Plt Count 124 L (150-450) K/mm3 Neutrophils % 85.0 H (42-75.0) % Lymphocytes % 8.2 L (20-51) % Neutrophils # 8.2 H (1.3-6.0) K/mm3 Lymphocytes # 0.8 L (1.5-3.5) k/mm3 Sodium 143 H (132-142) mmol/L Plasma Sodium 144 H (130-142) mmol/L Potassium 3.3 L (3.4-4.6) mmol/L BUN 29 H 28 H (3-23) mg/dL Creatinine 1.71 H 1.47 H (0.4-1.4) mg/dL Est GFR (Non-Af Amer) 30 L 36 L (60-130) mL/min Random Glucose 143 H (70-110) mg/dL - Exam Constitutional: Present: Cooperative, No distress ENT Exam: Present: hearing grossly normal Neck: Present: supple Breasts: Present: Exam deferred Respiratory: Present: lungs clear, normal breath sounds, no respiratory distress Cardiovascular/Chest: Present: normal peripheral pulses, regular rate, rhythm, no edema Abdomen: Present: soft, nontender, nondistended /Rectal: Present: Exam deferred Extremity: Present: no pedal edema, leg pain - right Skin Exam: Present: warm/dry, no cyanosis, pallor Cauti Physician Documentation - Urinary Catheter Management Urethral (Wing) Urethral Indwelling: Yes Date of Insertion: 12/02/16 Time of Insertion: 21:45 Date of Removal: 12/04/16 Time of Removal: 11:00 Assessment/Plan Plan Narrative: Displaced right femur fracture, s/p closed reduction - Dr. Escalante consulted, appreciate his help. - POD #2 - encourage good pain management post op. - incentive spirometer q1 hour while awake - PT/OT - encourage ambulation UTI - UA c/w infection - Rocephin 1 gm iv q 24 hours - Day #3 - Diflucan 150 mg po daily - Day #3 - due to yeast in urine on cath UA - urine culture pending; await final culture - check blood cultures to rule out more serious infection AMANDEEP - unsure of baseline creatinine as I do not have additional labs available - creatinine improving - casts and additional UA results c/w kidney injury - watch labs while admitted anemia - hgb 6.5 this am 12/05/16 - type & cross and administer 2 units PRBCs - premed with tylenol and benadryl - lasix iv after 1st unit of blood. - check labs in am. Fall - likely due to UA - PT/OT Dementia - high fall risk - will need bed alarm while in hospital - watch closely HTN - vital signs q 4 hours Code status: Full Code VTE: lovenox / SCDs while in bed. GI proph: protonix po - Problems/Diagnosis (1) Fracture, intertrochanteric, right femur Problem: Acute QualifierTitle: Encounter type: initial encounter Fracture type: closed Fracture alignment: displaced Qualified Code(s): S72.141A - Displaced intertrochanteric fracture of right femur, initial encounter for closed fracture (2) Fall Problem: Acute QualifierTitle: Encounter type: initial encounter Qualified Code(s): W19.XXXA - Unspecified fall, initial encounter (3) Dementia Problem: Chronic QualifierTitle: Dementia type: unspecified type Dementia behavioral disturbance: without behavioral disturbance Qualified Code(s): F03.90 - Unspecified dementia without behavioral disturbance (4) HTN (hypertension) Problem: Chronic QualifierTitle: Hypertension type: essential hypertension Qualified Code( s): I10 - Essential (primary) hypertension (5) HLD (hyperlipidemia) Problem: Acute QualifierTitle: Hyperlipidemia type: unspecified Qualified Code(s): E78.5 - Hyperlipidemia, unspecified (6) Anemia Problem: Acute QualifierTitle: Anemia type: unspecified type Qualified Code(s): D64.9 - Anemia, unspecified <Devang Diaz - Last Filed: 12/05/16 10:29> Subjective Subjective Narrative: Continues to do well. Confused, but pleasant. We will follow the ortho post op protocol. I directed all of the nurse practitioner hospitalist care for this patient. Objective - Vitals Vitals: Last Vital Signs Temp 37.3 C 12/05/16 09:34 Pulse 94 12/05/16 09:34 Resp 16 12/05/16 09:34 BP 133/73 12/05/16 09:34 Pulse Ox 98 12/05/16 09:34 - Abnormal Lab Findings Abnormal Lab Findings: Abnormal Lab Results 12/05/16 12/05/16 12/05/16 Range/Units 05:10 05:10 05:50 RBC 2.19 L (4.2-5.4) M/mm3 Hgb 6.5 L* (12.5-16.0) gm/dL Hct 19.8 L* (37.0-47.0) % Plt Count 124 L (150-450) K/mm3 Neutrophils % 85.0 H (42-75.0) % Lymphocytes % 8.2 L (20-51) % Neutrophils # 8.2 H (1.3-6.0) K/mm3 Lymphocytes # 0.8 L (1.5-3.5) k/mm3 BUN 28 H (3-23) mg/dL Creatinine 1.47 H (0.4-1.4) mg/dL Est GFR (Non-Af Amer) 36 L (60-130) mL/min Crossmatch See Detail
[2016-12-05] MEDS: PANTOPRAZOLE SODIUM 40 MG TABLET.EC PO SCH (06:30)
[2016-12-05] MEDS ORDERED: FUROSEMIDE 10 MG/ML VIAL IV PRN (09:01)
[2016-12-05] MEDS: DONEPEZIL HCL 10 MG TABLET PO SCH (09:16)
[2016-12-05] MEDS: HYDROCHLOROTHIAZIDE 25 MG TABLET PO SCH (09:16)
[2016-12-05] MEDS: NIFEdipine 30 MG TAB.SR.24H PO SCH (10:38)
[2016-12-05] MEDS: LISINOPRIL 10 MG TABLET PO SCH (10:38)
--- NOTE | 2016-12-05 12:23 | PN ---
Subjective - Date and Time Seen Date: 12/05/16 Subjective Narrative: No events overnight. Pain controlled this am. No other complaints. Objective - Vitals Vitals: Last Vital Signs Temp 37.3 C 12/05/16 12:09 Pulse 83 12/05/16 12:09 Resp 16 12/05/16 12:09 BP 145/62 12/05/16 12:09 Pulse Ox 100 12/05/16 12:09 - Abnormal Lab Findings Abnormal Lab Findings: Abnormal Lab Results 12/05/16 12/05/16 12/05/16 Range/Units 05:10 05:10 05:50 RBC 2.19 L (4.2-5.4) M/mm3 Hgb 6.5 L* (12.5-16.0) gm/dL Hct 19.8 L* (37.0-47.0) % Plt Count 124 L (150-450) K/mm3 Neutrophils % 85.0 H (42-75.0) % Lymphocytes % 8.2 L (20-51) % Neutrophils # 8.2 H (1.3-6.0) K/mm3 Lymphocytes # 0.8 L (1.5-3.5) k/mm3 BUN 28 H (3-23) mg/dL Creatinine 1.47 H (0.4-1.4) mg/dL Est GFR (Non-Af Amer) 36 L (60-130) mL/min Crossmatch See Detail - Exam Exam Narrative: Gen: A&O x3, NAD Resp: breathing non-labored MSK: RLE--> dressings c/d/i, thigh moderately swollen, no erythema, mild pain with gentle motion, SILT, 5/5 EHL/FHL/DF/PF, cap refill brisk Cauti Physician Documentation - Urinary Catheter Management Urethral (Hebert) Urethral Indwelling: Yes Date of Insertion: 12/02/16 Time of Insertion: 21:45 Date of Removal: 12/04/16 Time of Removal: 11:00 Assessment/Plan Plan Narrative: 81 yo F w/ R intertrochanteric femur fracture s/p cephalomedullary nailing, POD #2. - WBAT, ROM as tolerated - reg diet - oral pain meds - acute blood loss anemia - Hgb 6.5 this am, Medicine to transfuse - elevated Cr - consistent with AMANDEEP, trending down, continue gentle hydration and close monitoring - hebert out once mobilizing - DVT ppx: lovenox, SCDs, teds - PT/OT - continue care per Medicine team - dispo: continue inpatient care - Problems/Diagnosis (1) Hip fracture, intertrochanteric Problem: Acute Qualifiers: Encounter type: initial encounter Fracture type: closed Fracture alignment: displaced Laterality: right Qualified Code(s): S72.141A - Displaced intertrochanteric fracture of right femur, initial encounter for closed fracture (2) Fracture, intertrochanteric, right femur Problem: Acute Qualifiers: Encounter type: initial encounter Fracture type: closed Fracture alignment: displaced Qualified Code(s): S72.141A - Displaced intertrochanteric fracture of right femur, initial encounter for closed fracture
[2016-12-05] MEDS: ENOXAPARIN SODIUM 30 MG/0.3 ML SYRG SC SCH (14:53)
[2016-12-05 17:27] LABS: Hematocrit 34.7 % (37.0-47.0); Hemoglobin 11.9 gm/dL (12.5-16.0)
[2016-12-05] MEDS: oxyCODONE HCL/ACETAMINOPHEN 1 TAB TABLET PO PRN (17:57)
[2016-12-05] MEDS: SIMVASTATIN 10 MG TABLET PO SCH (20:43)
[2016-12-05] MEDS: risperiDONE 0.25 MG TABLET PO SCH (20:43)
[2016-12-05] MEDS: SENNOSIDES/DOCUSATE SODIUM 1 TAB TABLET PO SCH (20:43)
[2016-12-06] MEDS: oxyCODONE HCL/ACETAMINOPHEN 1 TAB TABLET PO PRN ×3 (01:35→18:52)
[2016-12-06 05:39] LABS: Hematocrit 30.4 % (37.0-47.0); Hemoglobin 10.4 gm/dL (12.5-16.0); Mean Cell Volume 86.1 fl (78-100); Mean Corpuscular Hemoglobin 29.5 pg (27-31); Mean Corpuscular Hgb Conc 34.2 g/dl (32-36); Mean Platelet Volume 10.2 fl (6.0-9.5); Neutrophil # 10.4 K/mm3 (1.3-6.0); Neutrophil % 85.1 % (42-75.0); Platelet Count 183 K/mm3 (150-450); Red Blood Count 3.53 M/mm3 (4.2-5.4); Red Cell Distribution Width 13.9 % (11.5-14.0); White Blood Count 12.2 K/mm3 (4.0-10.5)
[2016-12-06 05:45] LABS: Anion Gap 10.7 mmol/L (6.8-13.8); BUN/Creatinine Ratio 17.8 (9.0-21.6); Calcium * 8.4 mg/dL (7.9-10.9); Carbon Dioxide 29.4 mmol/L (24-32.6); Estimated Creat Clear 25.4; Potassium 3.1 mmol/L (3.4-4.6)
[2016-12-06] MEDS ORDERED: POTASSIUM CHLORIDE 40 MEQ/15 ML BTL PO ONE (05:55)
[2016-12-06] MEDS: PANTOPRAZOLE SODIUM 40 MG TABLET.EC PO SCH (07:02)
--- NOTE | 2016-12-06 09:19 | PN ---
Subjective - Date and Time Seen Date: 12/06/16 Time: 09:15 Subjective Narrative: No acute overnight events. Pt reports no pain at rest this AM. Pt has been up to ambulate, reports most discomfort when ambulating. Pt states she has had positive BM. Objective - Vitals Vitals: Last Vital Signs Temp 36.2 C L 12/06/16 06:48 Pulse 88 12/06/16 06:48 Resp 18 12/06/16 02:58 BP 127/66 12/06/16 06:48 Pulse Ox 98 12/06/16 06:48 - Abnormal Lab Findings Abnormal Lab Findings: Abnormal Lab Results 12/05/16 12/05/16 12/06/16 Range/Units 05:50 17:14 05:10 WBC 12.2 H D (4.0-10.5) K/mm3 RBC 3.53 L (4.2-5.4) M/mm3 Hgb 11.9 L 10.4 L (12.5-16.0) gm/dL Hct 34.7 L 30.4 L (37.0-47.0) % MPV 10.2 H (6.0-9.5) fl Immature Gran % (Auto) 0.80 H (0.001-0.429) % Immature Gran # (Auto) 0.10 H (0.000-0.0310) K/mm3 Neutrophils % 85.1 H (42-75.0) % Lymphocytes % 8.7 L (20-51) % Neutrophils # 10.4 H (1.3-6.0) K/mm3 Lymphocytes # 1.1 L (1.5-3.5) k/mm3 Potassium (3.4-4.6) mmol/L BUN (3-23) mg/dL Creatinine (0.4-1.4) mg/dL Est GFR (Non-Af Amer) (60-130) mL/min Crossmatch See Detail 12/06/16 Range/Units 05:10 WBC (4.0-10.5) K/mm3 RBC (4.2-5.4) M/mm3 Hgb (12.5-16.0) gm/dL Hct (37.0-47.0) % MPV (6.0-9.5) fl Immature Gran % (Auto) (0.001-0.429) % Immature Gran # (Auto) (0.000-0.0310) K/mm3 Neutrophils % (42-75.0) % Lymphocytes % (20-51) % Neutrophils # (1.3-6.0) K/mm3 Lymphocytes # (1.5-3.5) k/mm3 Potassium 3.1 L (3.4-4.6) mmol/L BUN 29 H (3-23) mg/dL Creatinine 1.63 H (0.4-1.4) mg/dL Est GFR (Non-Af Amer) 32 L (60-130) mL/min Crossmatch - Exam Constitutional: Present: Alert, Cooperative. Absent: Acute distress Respiratory: Present: no respiratory distress Extremity: Present: other - RLE bandages clean, dry, and intact, no erythema around wound, minimal swelling to right thigh. 5/5 strength FHL, EHL, PF, DF. Gross sensation intact. Cauti Physician Documentation - Urinary Catheter Management Urethral (Hebert) Urethral Indwelling: Yes Date of Insertion: 12/02/16 Time of Insertion: 21:45 Date of Removal: 12/04/16 Time of Removal: 11:00 Assessment/Plan Plan Narrative: 81 yo F w/ R intertrochanteric femur fracture s/p cephalomedullary nailing, POD #3. - WBAT, ROM as tolerated - reg diet - oral pain meds - acute blood loss anemia - Hgb 10.4 this am, s/p Medicine transfuse - elevated Cr - consistent with AMANDEEP, trending down at 1.63, continue gentle hydration and close monitoring - hebert out - DVT ppx: lovenox, SCDs, teds - PT/OT - continue care per Medicine team - dispo: continue inpatient care - Problems/Diagnosis (1) Fracture, intertrochanteric, right femur Problem: Acute Qualifiers: Encounter type: initial encounter Fracture type: closed Fracture alignment: displaced Qualified Code(s): S72.141A - Displaced intertrochanteric fracture of right femur, initial encounter for closed fracture
[2016-12-06] MEDS: LISINOPRIL 10 MG TABLET PO SCH (09:52)
[2016-12-06] MEDS: NIFEdipine 30 MG TAB.SR.24H PO SCH (09:52)
[2016-12-06] MEDS: HYDROCHLOROTHIAZIDE 25 MG TABLET PO SCH (09:52)
[2016-12-06] MEDS: DONEPEZIL HCL 10 MG TABLET PO SCH (09:52)
[2016-12-06] MEDS ORDERED: AZITHROMYCIN 250 MG TABLET PO STA (12:36)
[2016-12-06 13:06] LABS: Hematocrit 30.1 % (37.0-47.0); Hemoglobin 10.2 gm/dL (12.5-16.0); Mean Corpuscular Hemoglobin 29.5 pg (27-31); Mean Corpuscular Hgb Conc 33.9 g/dl (32-36); Mean Platelet Volume 10.1 fl (6.0-9.5); Neutrophil # 11.5 K/mm3 (1.3-6.0); Neutrophil % 87.6 % (42-75.0); Platelet Count 194 K/mm3 (150-450); Red Blood Count 3.46 M/mm3 (4.2-5.4); Red Cell Distribution Width 14.1 % (11.5-14.0); White Blood Count 13.1 K/mm3 (4.0-10.5)
[2016-12-06 13:23] LABS: Anion Gap 12.9 mmol/L (6.8-13.8); BUN/Creatinine Ratio 19.2 (9.0-21.6); Calcium * 8.4 mg/dL (7.9-10.9); Carbon Dioxide 26.9 mmol/L (24-32.6); Estimated Creat Clear 23.4; Potassium 3.8 mmol/L (3.4-4.6)
[2016-12-06] MEDS ORDERED: NORMAL SALINE 1,000 ML IV ONE (13:34)
[2016-12-06 14:31] LABS: Urine Appearance Clear; Urine Bilirubin Negative (NEGATIVE); Urine Blood Negative /ul (NEGATIVE); Urine Color Yellow; Urine Ketone Negative (NEGATIVE); Urine Nitrite Negative (NEGATIVE); Urine Protein Negative (NEGATIVE); Urine Specific Gravity <=1.005 SP.GR. (1.005-1.010); Urine Urobilinogen Normal (NORMAL)
[2016-12-06 14:32] LABS: Urine Bacteria None Seen; Urine Hyaline Cast TRACE /LPF; Urine RBC TRACE /hpf (0-5); Urine WBC None Seen /hpf (0-5)
[2016-12-06] MEDS: ENOXAPARIN SODIUM 30 MG/0.3 ML SYRG SC SCH (15:40)
--- NOTE | 2016-12-06 18:16 | PN ---
Subjective - Date and Time Seen Date: 12/06/16 Time: 07:00 Subjective Narrative: Continues to do well, but not eating. Hgb to 6.5 yesterday, so transfused 2 units. Confused, but pleasant. We will follow the ortho post op protocol. I directed all of the nurse practitioner hospitalist care for this patient. Objective - Review of Systems Generalized/Overall Review: Reports: Malaise EENTM: Reports: No Symptoms Reported Respiratory: Reports: No Symptoms Reported Cardiac: Reports: No Symptoms Reported Abdominal: Reports: Other - poor appetite Genitourinary Symptoms: Reports: No Symptoms Reported Musculoskeletal Complaints: Reports: No Symptoms Reported Neurological: Reports: Other - pulls at all lines and extraneous materials Skin: Reports: No Symptoms Reported Endocrine: Reports: No Symptoms Reported Misc: All systems neg except as marked - Vitals Vitals: Last Vital Signs Selected Entries 12/06/16 06:48 Temperature 36.2 C L Temperature Temporal Artery Source Scan Pulse Rate 88 Respiratory Normal Depth Blood Pressure 127/66 Blood Pressure Supine Position O2 Sat by Pulse 98 Oximetry Oxygen Delivery Room Air Method - Abnormal Lab Findings Abnormal Lab Findings: Abnormal Lab Results 12/06/16 12/06/16 12/06/16 Range/Units 05:10 05:10 12:54 WBC 12.2 H D 13.1 H (4.0-10.5) K/mm3 RBC 3.53 L 3.46 L (4.2-5.4) M/mm3 Hgb 10.4 L 10.2 L (12.5-16.0) gm/dL Hct 30.4 L 30.1 L (37.0-47.0) % RDW 14.1 H (11.5-14.0) % MPV 10.2 H 10.1 H (6.0-9.5) fl Immature Gran % (Auto) 0.80 H 1.10 H (0.001-0.429) % Immature Gran # (Auto) 0.10 H 0.15 H (0.000-0.0310) K/mm3 Neutrophils % 85.1 H 87.6 H (42-75.0) % Lymphocytes % 8.7 L 5.7 L (20-51) % Neutrophils # 10.4 H 11.5 H (1.3-6.0) K/mm3 Lymphocytes # 1.1 L 0.8 L (1.5-3.5) k/mm3 Potassium 3.1 L (3.4-4.6) mmol/L BUN 29 H (3-23) mg/dL Creatinine 1.63 H (0.4-1.4) mg/dL Est GFR (Non-Af Amer) 32 L (60-130) mL/min Random Glucose (70-110) mg/dL Lactic Acid, Venous (0.4-1.9) mmol/L 12/06/16 12/06/16 Range/Units 12:54 12:54 WBC (4.0-10.5) K/mm3 RBC (4.2-5.4) M/mm3 Hgb (12.5-16.0) gm/dL Hct (37.0-47.0) % RDW (11.5-14.0) % MPV (6.0-9.5) fl Immature Gran % (Auto) (0.001-0.429) % Immature Gran # (Auto) (0.000-0.0310) K/mm3 Neutrophils % (42-75.0) % Lymphocytes % (20-51) % Neutrophils # (1.3-6.0) K/mm3 Lymphocytes # (1.5-3.5) k/mm3 Potassium (3.4-4.6) mmol/L BUN 34 H (3-23) mg/dL Creatinine 1.77 H (0.4-1.4) mg/dL Est GFR (Non-Af Amer) 29 L (60-130) mL/min Random Glucose 118 H (70-110) mg/dL Lactic Acid, Venous 2.7 H* (0.4-1.9) mmol/L - Exam Constitutional: Present: Alert, Cooperative, Well developed, No distress, Thin and frail ENT Exam: Present: normal ENT inspection Neck: Present: normal inspection Respiratory: Present: normal breath sounds, no respiratory distress Cardiovascular/Chest: Present: regular rate, rhythm, no edema Abdomen: Present: Normal bowel sounds, soft, nontender, nondistended, no rebound tenderness, no hepatospenomegaly, no masses Extremity: Present: normal inspection, no pedal edema Skin Exam: Present: normal color, warm/dry, no cyanosis Neurologic: Present: alert Appearance: Present: appropriate appearance, neat Eye contact: Present: cooperative Cauti Physician Documentation - Urinary Catheter Management Urethral (Wing) Urethral Indwelling: Yes Date of Insertion: 12/02/16 Time of Insertion: 21:45 Date of Removal: 12/04/16 Time of Removal: 11:00 Assessment/Plan Plan Narrative: Follow labs, follow ortho path, wbc noted to be elevated
[2016-12-06] MEDS ORDERED: MIRTAZAPINE 15 MG TABLET PO SCH (21:00)
[2016-12-06] MEDS: SIMVASTATIN 10 MG TABLET PO SCH (21:38)
[2016-12-06] MEDS: SENNOSIDES/DOCUSATE SODIUM 1 TAB TABLET PO SCH (21:38)
[2016-12-06] MEDS: risperiDONE 0.25 MG TABLET PO SCH (21:39)
[2016-12-07] MEDS: PANTOPRAZOLE SODIUM 40 MG TABLET.EC PO SCH (06:41)
--- NOTE | 2016-12-07 07:25 | PN ---
Progess Note - Interim Narrative: 12/07/16 07:23 Orthopedic Discharge Instructions: 1. WBAT, ROM as tolerated 2. PT for upright mobility and R hip strengthening. 3. Sponge baths only until follow up. 4. Change dressings every 2-3 days with 4x4 gauze and tape. 5. DVT prophylaxis: 10 days total of lovenox followed by 6 weeks of 325 mg aspirin, knee high lobo hose for 6 weeks. 6. Follow up in 2 weeks in Orthopedic clinic ([phone]). Curtis Escalante MD
--- NOTE | 2016-12-07 08:04 | DS ---
(1) Fracture, intertrochanteric, right femur Problem: Acute Qualifiers: Encounter type: initial encounter Fracture type: closed Fracture alignment: displaced Qualified Code(s): S72.141A - Displaced intertrochanteric fracture of right femur, initial encounter for closed fracture (2) Hospital-acquired pneumonia Problem: Acute (3) Aspiration pneumonia due to gastric secretions Problem: Acute Qualifiers: Laterality: left Lung location: lower lobe of lung Qualified Code(s): J69.0 - Pneumonitis due to inhalation of food and vomit (4) Anemia Problem: Acute Qualifiers: Anemia type: iron deficiency Iron deficiency anemia type: other iron deficiency Qualified Code(s): D50.8 - Other iron deficiency anemias (5) Fall Problem: Acute Qualifiers: Encounter type: initial encounter Qualified Code(s): W19.XXXA - Unspecified fall, initial encounter (6) HLD (hyperlipidemia) Problem: Chronic Qualifiers: Hyperlipidemia type: unspecified Qualified Code(s): E78.5 - Hyperlipidemia , unspecified (7) Dementia Problem: Chronic Qualifiers: Dementia type: unspecified type Dementia behavioral disturbance: without behavioral disturbance Qualified Code(s): F03.90 - Unspecified dementia without behavioral disturbance (8) HTN (hypertension) Problem: Chronic Qualifiers: Hypertension type: essential hypertension Qualified Code(s): I10 - Essential (primary) hypertension Procedures Performed: see notes below - Closed reduction, cephalo-medullary fixation right intertrochanteric femur fracture. Intraoperative interpretation of radiographs Discharge Disposition: [facility] Disposition: Other health care facility Condition: Fair Discharge Diet: General/regular food Discharge Level of Care:: [facility] Therapy: Physicial Therapy, Occupation Therapy - 1955 Consultation Done:: Dr. Escalante, Ortho Problem Oriented Discharge Instructions to Patient/Family: Hip Fracture Additional Patient Instructions (free text): [facility] at discharge for SNF. 1. WBAT, ROM as tolerated 2. PT for upright mobility and R hip strengthening. 3. Sponge baths only until follow up. 4. Change dressings every 2-3 days with 4x4 gauze and tape. 5. DVT prophylaxis: 7 more days total of lovenox 40 mg daily s.c. starting today followed by 6 weeks of 325 mg aspirin daily beginning 7 days from now, knee high lboo hose for 6 weeks beginning today. 6. Follow up in 2 weeks in Orthopedic clinic ([phone]). Prescriptions (Any new or edited meds): Acetaminophen [Tylenol] 650 mg PO QID PRN #1 tablet PRN Reason: Mild Pain Aspirin [Aspirin Enteric Coated] 325 mg PO DAILY #42 tablet. Enoxaparin Sodium [Lovenox] 30 mg SC Q24H #7 disp.syrin Levofloxacin [Levaquin] 500 mg PO DAILY #10 tab oxyCODONE HCL/ACETAMINOPHEN [Percocet 5 MG/325 MG] 1 tab PO Q6H PRN #20 tablet PRN Reason: Moderate Pain Complete Home Medications List: Complete Home Medication List: Donepezil HCl [Aricept] 10 mg PO DAILY 12/02/16 Hydrochlorothiazide [Hydrodiuril] 25 mg PO DAILY 12/02/16 Lisinopril [Prinivil] 10 mg PO DAILY 12/02/16 NIFEdipine [Procardia Xl] 30 mg PO DAILY 12/02/16 Pravastatin Sodium [Pravachol] 20 mg PO DAILY 12/02/16 Acetaminophen [Tylenol] 650 mg PO QID PRN #1 tablet 12/07/16 Enoxaparin Sodium [Lovenox] 30 mg SC Q24H #7 disp.syrin 12/07/16 Levofloxacin [Levaquin] 500 mg PO DAILY #10 tab 12/07/16 Mag Hydrox/Aluminum Hyd/Simeth [Maalox Plus Suspension] 30 ml PO Q6H PRN #0 udc 12/07/16 Magnesium Hydroxide [Milk Of Magnesia] 30 ml PO DAILY PRN #0 udc 12/07/16 Mirtazapine [Remeron] 15 mg PO HS tablet 12/07/16 Pantoprazole Sodium [Protonix] 40 mg PO DAILY@0700 tablet. 12/07/16 Sennosides/Docusate Sodium [Senokot-S] 2 tab PO HS tablet 12/07/16 oxyCODONE HCL/ACETAMINOPHEN [Percocet 5 MG/325 MG] 1 tab PO Q6H PRN #20 tablet 12/07/16 risperiDONE [Risperdal] 0.125 mg PO HS tablet 12/07/16 Aspirin [Aspirin Enteric Coated] 325 mg PO DAILY #42 tablet. 12/14/16
[2016-12-07] MEDS ORDERED: AZITHROMYCIN 250 MG TABLET PO SCH (09:00)
[2016-12-07] MEDS: DONEPEZIL HCL 10 MG TABLET PO SCH (09:06)
[2016-12-07] MEDS: NIFEdipine 30 MG TAB.SR.24H PO SCH (09:06)
[2016-12-07] MEDS: oxyCODONE HCL/ACETAMINOPHEN 1 TAB TABLET PO PRN (09:06)
[2016-12-07] MEDS: HYDROCHLOROTHIAZIDE 25 MG TABLET PO SCH (09:06)
[2016-12-07] MEDS: LISINOPRIL 10 MG TABLET PO SCH (09:07)
[2016-12-07 09:35] VITALS: BP 123/47
--- NOTE | 2016-12-07 18:24 | PN ---
Progess Note - Interim Narrative: 12/07/16 18:21 About mid day 12/06/16, new leukocytosis was noted and contemplated. A workup was begun. The patient was also found to have lactic acidosis, resolved with one liter bolus of IV saline. CXR showed a LLL infiltrate. A diagnosis of hospital acquired aspiration pneumonia was made, given her advanced age and her proclivity to remaine supine. Antibiotics were started promptly, and I suspect she will do well.
== END 2016-12-07 13:33 | DRG 481 ==
LOC: ER 16:34 → MS 19:12
PROVIDERS: ADMIT Allergy & Immunology; ATTEND Allergy & Immunology
PROC: 0QS636Z Reposition Right Upper Femur with Intramedullary Internal Fixation Device, Percutaneous Approach (ICD-10-PCS; principal; 2016-12-03 14:00)
PROC: 30263N1 (ICD-10-PCS; 2016-12-05)
DX: S72.141A Displaced intertrochanteric fracture of right femur, initial encounter for closed fracture (principal); D62 Acute posthemorrhagic anemia; W19.XXXA Unspecified fall, initial encounter; Y92.009 Unspecified place in unspecified non-institutional (private) residence as the place of occurrence of the external cause; I10 Essential (primary) hypertension; E78.5 Hyperlipidemia, unspecified; F03.90 Unspecified dementia, unspecified severity, without behavioral disturbance, psychotic disturbance, mood disturbance, and anxiety; Z85.3 Personal history of malignant neoplasm of breast
CPT/HCPCS: 27244; 36415; 71010; 72170; 72192; 73502; 73700; 76000; 80048; 80053; 81001; 83605; 84443; 85014; 85018; 85025; 86850; 86900; 87040; 87086; 87449; 93005; 96374; 96375; 97110; 97116; 97162; 97165; 97530; 99284; J2405; P9016